=== PATIENT | male | born 1960 | race Caucasian/White ===

== ENCOUNTER 2021-06-06 09:07 | Emergency (ER) | payer BC, SELFPAY ==
--- NOTE | ~2021-06-06 | CT_ITS ---
EXAMINATION: CT abdomen pelvis wo/w con EXAM DATE: 06/06/2021 10:44 INDICATION: hematuria, Hx of prostate CA, r/o stone/CA. TECHNIQUE: Spiral CT of the abdomen and pelvis was performed without contrast. The patient was then injected with small bolus intravenous Omnipaque 350, followed by delay of approximately 10 minutes to allow collecting system to opacify. A post contrast scan abdomen and pelvis was performed during inj ection of remaining contrast. A total of 130 cc intravenous contrast was administered. The dose-vidya th product (DLP) for this examination was 754.98 mGy-cm. The exposure was tailored according to shekhar ent size (auto mA exposure control), and iterative reconstruction (ASIR) was used as additional dose reduction technique. Comparison is made to prior examination from 12/27/2017. FINDINGS: On the precontrast study there is hyperdense material in the dependent aspect of the bladde r which shifts on prone imaging, consistent with blood clot measuring about 2 x 3 cm. Mild diffuse bl adder wall thickening without superimposed focal suspicious region. There is no hydronephrosis or nep hrolithiasis. The kidneys enhance symmetrically. There are no suspicious renal lesions. The calyc es and opacified portions of ureters are unremarkable, without filling defects or focal suspicious st rictures. Surgical changes from prostatectomy. Small right inguinal fat-containing hernia. Small umb ilical fat-containing hernia. The liver, spleen, adrenal glands and pancreas are unremarkable. Gallbladder is unremarkable. No bi liary obstruction. There is no retroperitoneal or pelvic lymphadenopathy. There is mild scattered arteriosclerotic disease. The appendix is normal. The stomach and small bowel are unremarkable. There is expected amount of c olonic stool. No free intraperitoneal gas. The heart is normal in size. There are no pericardial or pleural effusions. Right lower lobe granuloma. There are no osteoblastic or osteolytic lesions identified. Mild lumbar levoscoliosis. IMPRESSION: 1. Bladder mobile intraluminal material, likely blood clot. Mild diffuse bladder wall thickening, ac point lay ira or chronic cystitis. 2. Prostatectomy. 3. Small fat-containing hernias. Reviewed, dictated and finalized at location A. IMPRESSION: 1. Bladder mobile intraluminal material, likely blood clot. Mild diffuse bladd er wall thickening, acute or chronic cystitis. 2. Prostatectomy. 3. Small fat-containing hernias.
[2021-06-06 09:14] VITALS: BP 153/74; PULSE 69; RESP 18; TEMP 36.7; O2SAT 100
--- NOTE | 2021-06-06 09:29 | ED.GENADULT ---
HPI - General Adult General Chief complaint: Urogenital-Male <SAM Thrasher Last Filed: 06/06/21 18:23> Stated complaint: Urinating blood <SAM Thrasher Last Filed: 06/06/21 18:23> Time Seen by Provider: 06/06/21 09:22 <SAM Thrasher Last Filed: 06/06/21 18:23> Source: patient <SAM Thrasher Last Filed: 06/06/21 18:23> Mode of arrival: ambulatory <SAM Thrasher Last Filed: 06/06/21 18:23> Limitations: no limitations <SAM Thrasher Last Filed: 06/06/21 18:23> History of Present Illness HPI narrative: Patient is a 61 y/o male who presents to the ED with c/o painless hematuria. Patient reports he urinated at 2 AM this morning and noticed 1 drop of blood in his urine. No pain with urination at that time. He then urinated around 5 AM at which point it was gross bleeding throughout his whole urination. He went to work and had another episode of gross bleeding around 7:45 AM at which point he also passed several large blood clots in his urine. He then decided to come to the ED. Patient did report slight discomfort with urination with the episode of clots, but has denied any other discomfort otherwise. He does report intermittent lower abdominal and lower back pain recently but denies any pain currently. No fever, chills, nausea, vomiting, urinary retention. No blood thinners/ASA. No recent instrumentation. Patient has history of prostate cancer in 2018. He underwent prostatectomy and radiation treatment at that time. <ASM Thrasher Last Filed: 06/06/21 18:23> Related Data Allergies/adverse reactions: Allergies Allergy/AdvReac Type Severity Reaction Status Date / Time No Known Allergies Allergy Verified 06/06/21 09:24 <SAM Thrasher Last Filed: 06/06/21 18:23> Review of Systems Review of Systems: CONSTITUTIONAL: Denies fever, chills, or sweats. CARDIOVASCULAR: Denies chest pain. RESPIRATORY: Denies dyspnea. GASTROINTESTINAL: Reports intermittent lower abdominal pain. Denies nausea, vomiting, or diarrhea. GENITOURINARY: Reports urinary discomfort, passing clots, hematuria. Denies retention. SKIN: Denies rash or itching. MUSCULOSKELETAL: Reports intermittent lower back pain. Denies joint pain or myalgia. <Eileen Byrd PA-C - Last Filed: 06/06/21 18:23> All systems reviewed & are unremarkable except as noted in HPI and below <Eileen Byrd PA-C - Last Filed: 06/06/21 18:23> PMFSH Past Medical History Medical History: Medical History (Updated 06/06/21 @ 12:29 by Eileen Byrd PA-C) History of prostate cancer <Eileen Byrd PA-C - Last Filed: 06/06/21 18:23> Surgical History Surgical History: Surgical History (Updated 06/06/21 @ 09:49 by Eileen Byrd PA-C) H/O hernia repair H/O prostatectomy <Eileen Byrd PA-C - Last Filed: 06/06/21 18:23> Family History Family History: Family History (Updated 10/15/13 @ 07:13 by DOCTOR UNKNOWN) Father Carcinoma of colon Malignant neoplasm of prostate Other Diabetes mellitus Family history of cardiovascular disease Family history of coronary artery disease Hypertension <Eileen Byrd PA-C - Last Filed: 06/06/21 18:23> Social History Social History: Social History (Updated 06/06/21 @ 09:50 by Eileen Byrd PA-C) Smoking packs per day: 1 Smoking cigarettes per day: 20.0 Smoking status: Current every day smoker Alcohol intake: current <Eileen Byrd PA-C - Last Filed: 06/06/21 18:23> Exam Narrative: GENERAL: Mildly chronically ill appearing, well-nourished, non-toxic, in no acute distress. HEAD: Normocephalic, atraumatic. NECK: Supple. No adenopathy, no masses. RESPIRATORY: Airway patent, respirations nonlabored. Rhonchi in lung bases bilaterally. No wheezing. CARDIOVASCULAR: Regular rate and rhythm without murmurs, rubs, or gallops. Peripheral pulses 2+ and equal bilaterally. ABDOMINAL: S
--- NOTE | 2021-06-06 09:55 | PC.NURSE ---
pt states he is unable to void at this time.
[2021-06-06 09:58] LABS: Basophils Percent Auto 0.8 % (0.2-1.2); Eosinophils Absolute Auto 0.1 K/mm3 (0-0.3); Hematocrit 42.6 % (42.0-52.0); Hemoglobin 14.3 g/dL (14.0-18.0); Immature Granulocyte Absolute 0.03 K/mm3 (0.00-0.031); Immature Granulocyte Percent A 0.6 % (0-0.5); Lymphocytes Absolute Auto 0.89 K/mm3 (0.9-3.2); Lymphocytes Percent Auto 18.4 % (18.3-44.2); Mean Corpuscular HGB Conc 33.6 g/dl (32-36); Mean Corpuscular Hemoglobin 34.1 pg (26-34); Mean Corpuscular Volume 101.7 fl (80-100); Mean Platelet Volume 8.6 fl (7.4-10.4); Monocytes Absolute Auto 0.5 K/mm3 (0.1-0.6); Monocytes Percent Auto 11.1 % (2.6-8.5); Neutrophils Absolute Auto 3.3 K/mm3 (1.3-6.7); Neutrophils Percent Auto 68.1 % (45.5-73.1); Platelet Count Result 258 k/mm3 (150-375); Red Blood Count 4.19 M/mm3 (4.6-6.20); Red Cell Distribution Width 13.6 % (11.5-14.5); White Blood Count 4.9 K/mm3 (4.5-10.0)
[2021-06-06 10:04] LABS: Alanine Aminotransferase 15 U/L (4-50); Albumin Level 4.7 g/dL (3.5-5.1); Alkaline Phosphatase 67 U/L (38-126); Anion Gap 5 mmol/L (8-16); Aspartate Amino Transferase 36 U/L (17-59); Bilirubin,Total 0.8 mg/dL (0.2-1.3); Blood Urea Nitrogen 11 mg/dL (9-20); Calcium 9.1 mg/dL (8.4-10.2); Carbon Dioxide 26 mmol/L (22-30); Chloride 100 mmol/L (98-107); Estimated CRCL calculation 98 ml/min; Estimated Glomerular Filt Rate > 60; Glucose 111 mg/dL (65-110); Sodium 131 mmol/L (137-145)
[2021-06-06 11:12] LABS: RBC Urine >75 /hpf (0-2); WBC Urine 16-20 /hpf
[2021-06-06 11:20] LABS: Add Urine Microscopic? YES; Appearance Urine Cloudy (Clear); Color Urine Red (Yellow)
[2021-06-06 11:21] LABS: Bilirubin Urine Negative (Negative); Blood Urine 3+ (Negative); Glucose Urine UA Negative (Negative); Ketones Urine Negative (Negative); Leukocyte Esterase Ur Trace LEU/UL (Negative); Nitrate Urine Negative (Negative); Protein Urine 1+ mg/dL (Negative); Specific Grav Ur 1.012 (1.001-1.035); Urobilinogen Urine Negative mg/dL (<2.0)
[2021-06-06 12:52] VITALS: BP 137/70
== END 2021-06-06 12:53 | disposition home or self-care (01) ==
PROVIDERS: Physician Assistant; Emergency Provider Emergency Medicine; PCP Internal Medicine
DX: N30.01 Acute cystitis with hematuria (principal); Z85.46 Personal history of malignant neoplasm of prostate; Z90.79 Acquired absence of other genital organ(s); F17.210 Nicotine dependence, cigarettes, uncomplicated; K46.9 Unspecified abdominal hernia without obstruction or gangrene
CPT/HCPCS: 36415; 74178; 80053; 81001; 85025; 87077; 87086; 87088; 87186; 99284; Q9967

== ENCOUNTER → 2022-09-07 14:59 | Outpatient (CLI) | payer BC, SELFPAY ==
--- NOTE | ~2022-09-07 | XR_ITS ---
XR shoulder RT min 2V DATE: 09/07/2022 15:24 INDICATION: Right shoulder pain for months. No recent injury. TECHNIQUE: 4 views COMPARISON: None FINDINGS: There is osteopenia. No fracture or dislocation, periosteal reaction or bone destruction is detected. No abnormal right shoulder soft tissue calcification is noted. Thoracic dextroscoliosis. IMPRESSION: Osteopenia Reviewed, dictated and finalized at location B. IMPRESSION: Osteopenia
--- NOTE | ~2022-09-07 | XR_ITS ---
XR shoulder LT min 2V DATE: 09/07/2022 15:25 INDICATION: Left shoulder pain for months. No recent injury. TECHNIQUE: 4 views COMPARISON: None FINDINGS: There is osteopenia. No fracture or dislocation, periosteal reaction or bone destruction or abnormal left shoulder soft ti ssue calcification is detected. IMPRESSION: Osteopenia Reviewed, dictated and finalized at location B. IMPRESSION: Osteopenia
== END ==
PROVIDERS: PCP Nurse Practitioner Family; Visit Provider Nurse Practitioner Family
DX: M25.512 Pain in left shoulder (principal); M25.511 Pain in right shoulder; M85.811 Other specified disorders of bone density and structure, right shoulder; M85.812 Other specified disorders of bone density and structure, left shoulder
CPT/HCPCS: 73030

== ENCOUNTER 2022-09-14 08:58 | Outpatient (CLI) | payer BC, SELFPAY ==
--- NOTE | ~2022-09-14 | CT_ITS ---
CT Scan of the Chest without Contrast: Clinical Indication: Lung cancer screening, personal history of nicotine dependence Technique: Contiguous sections were acquired throughout the chest without intravenous contrast. Dose reduction technique was used on this scan by utilizing automated exposure control and iterative recon struction technique. The dose-length product (DLP) was 140.95 mGy-cm. COMPARISON: 10/01/2017 Findings: There is no evidence of any significant mediastinal, hilar or axillary lymphadenopathy. Ascending aor ta is dilated to 4.8 cm in diameter. Small calcified mediastinal and right hilar lymph nodes are pres ent. Coronary artery calcification are present. There is no evidence of pleural or pericardial effusion. There is linear right basilar scarring or atelectasis. Calcified right lower lobe granuloma present.. Images through the upper abdomen reveal no abnormalities. There is diffuse osteoblastic metastatic disease, which is new since prior exam. Impression: Lung RADS 1-S: Negative. 12 month follow-up screening CT advised. Diffuse osteoblastic metastatic disease, which is new since prior exam. Metastatic prostate carcinoma is the most likely etiology. Reviewed, dictated and finalized at location . Impression: Lung RADS 1-S: Negative. 12 month follow-up screening CT advised. Diffuse osteoblastic metastatic disease, which is new since prior exam. Metasta tic prostate carcinoma is the most likely etiology.
--- NOTE | ~2022-09-14 | CT_ITS ---
EXAMINATION: CT abdomen pelvis w con DATE: 09/14/2022 09:39 INDICATION: Generalized abdominal pain. Nausea. TECHNIQUE: Computed tomography (CT) of the abdomen and pelvis was performed with 100 CC Omnipaque 350 intravenous contrast. Automated exposure control and iterative reconstruction technique were employe d. Exam dose: 229.15 mGy-cm total exam DLP. COMPARISON: 06/06/2021 CT abdomen pelvis FINDINGS: Mild discoid atelectasis and/or scarring at the base of the middle and right lower lobes. Old pulmonary granulomatous disease of the right lower lobe. Normal heart size. Coronary artery calcification. No pericardial or pleural effusion. Calcified hepatic and splenic granulomas consistent with old granulomatous disease. The gallbladder is present. No bile duct or pancreatic duct dilatation. No hepatic, splenic, pancreatic, and adrenal or renal space-occupying mass lesion. Normal caliber of the abdominal aorta; no abdominal aortic aneurysm or dissection is detected. No int raperitoneal or retroperitoneal or pelvic mass lesion or lymphadenopathy is noted. No urinary tract calculus or hydroureteronephrosis. There is prominent diffuse thickening of the urinary bladder wall. Cystitis is not excluded. The pros thrasher is likely surgically absent. Extensive osteosclerotic lesions of the ribs, sternum, thoracic and lumbar spine and iliac bones are noted most consistent with osteosclerotic metastatic disease of [place] cancer. Prominent bilateral penile corpora calcifications. No CT evidence of appendicitis. No bowel obstruction, bowel wall thickening, pneumatosis or intraperi toneal free air is noted. Small fat-containing umbilical hernia. Small fat-containing right inguinal hernia. IMPRESSION: Extensive new osteosclerotic lesions of the axial skeleton since 06/06/2021, likely due t o metastatic prostate cancer Status post prostatectomy Thickening of the urinary bladder which may be due to cystitis Reviewed, dictated and finalized at Location A. Reviewed, dictated and finalized at location B. IMPRESSION: Extensive new osteosclerotic lesions of the axial skeleton since , likely due to metastatic prostate cancer Status post prostatectomy Thickening of the urinary bladder which may be due to cystitis
[2022-09-14 09:14] LABS: Basophils Absolute Auto 0.1 K/mm3 (0.0-0.1); Basophils Percent Auto 1.3 % (0.2-1.2); Eosinophils Absolute Auto 0.1 K/mm3 (0-0.3); Eosinophils Percent Auto 1.8 % (0-4.4); Hematocrit 41.2 % (42.0-52.0); Hemoglobin 13.7 g/dL (14.0-18.0); Immature Granulocyte Absolute 0.15 K/mm3 (0.00-0.031); Immature Granulocyte Percent A 3.8 % (0-0.5); Lymphocytes Absolute Auto 1.21 K/mm3 (0.9-3.2); Lymphocytes Percent Auto 30.3 % (18.3-44.2); Mean Corpuscular HGB Conc 33.3 g/dl (32-36); Mean Corpuscular Hemoglobin 32.6 pg (26-34); Mean Corpuscular Volume 98.1 fl (80-100); Mean Platelet Volume 7.8 fl (7.4-10.4); Monocytes Absolute Auto 0.3 K/mm3 (0.1-0.6); Monocytes Percent Auto 6.8 % (2.6-8.5); Neutrophils Absolute Auto 2.3 K/mm3 (1.3-6.7); Platelet Count Result 228 k/mm3 (150-375); Red Cell Distribution Width 14.6 % (11.5-14.5)
[2022-09-14 09:24] LABS: Alanine Aminotransferase 15 U/L (6-50); Albumin Level 3.7 g/dL (3.5-5.1); Alkaline Phosphatase 316 U/L (38-126); Anion Gap 4 mmol/L (8-16); Aspartate Amino Transferase 32 U/L (17-59); Bilirubin,Total 0.4 mg/dL (0.2-1.3); Blood Urea Nitrogen 9 mg/dL (9-20); Calcium 8.7 mg/dL (8.4-10.2); Carbon Dioxide 28 mmol/L (22-30); Chloride 103 mmol/L (98-107); Cholesterol 181 mg/dL (0-200); Estimated Glomerular Filt Rate > 60; Glucose 93 mg/dL (65-110); HDL Direct 68 mg/dL; Potassium 4.6 mmol/L (3.4-5.0); Sodium 135 mmol/L (137-145); Triglycerides 62 mg/dL (<150)
[2022-09-14 09:31] LABS: Estimated Glomerular Filt Rate > 60
[2022-09-14 09:34] LABS: LDL Cholesterol Direct 77 mg/dL
[2022-09-14 09:54] LABS: Prostate Specific Antigen > 100.0 ng/mL (< OR = 4.0)
== END 2022-09-14 08:59 | disposition home or self-care (01) ==
PROVIDERS: PCP Nurse Practitioner Family; Referring Provider Nurse Practitioner Family; Visit Provider Family Medicine
DX: Z00.00 Encounter for general adult medical examination without abnormal findings (principal); Z87.891 Personal history of nicotine dependence; Z13.29 Encounter for screening for other suspected endocrine disorder; Z13.6 Encounter for screening for cardiovascular disorders; Z85.46 Personal history of malignant neoplasm of prostate; Z13.0 Encounter for screening for diseases of the blood and blood-forming organs and certain disorders involving the immune mechanism; R10.30 Lower abdominal pain, unspecified; C79.51 Secondary malignant neoplasm of bone; Z90.79 Acquired absence of other genital organ(s); R93.41 Abnormal radiologic findings on diagnostic imaging of renal pelvis, ureter, or bladder
CPT/HCPCS: 36415; 71271; 74177; 80053; 80061; 84153; 84443; 85025; Q9967

== ENCOUNTER 2022-10-05 00:34 | Day surgery (SDC) | payer BC, SELFPAY ==
--- NOTE | 2022-10-04 13:44 | PC.NURSE ---
Report to the Outpatient Waiting Room, entrance under the green pavilion located off [facility], at time _1015 on date __10/05/22 . Planned Procedure Time: __1215 . Time changes happen often and if your time is changed the preop area will call you the afternoon before. - You and your visitor will be asked to self-screen and do not enter if you have any COVID symptoms. - A mask is optional within the hospital at this time. Patients may have clear liquids (water, carbonated beverages, clear teas, apple juice) until 3 hours prior to surgery with a maximum of 20 ounces. - No food from midnight until time of surgery - Infants may have breast milk until 4 hours before surgery, infant formula 6 hours prior to surgery. - Children will be allowed to drink immediately following surgery. If applicable, please bring a bottle or sippy cup to assist with drinking. Juice, water, soda, and popsicles are readily available. For infants on formula, please bring formula the day of surgery. Pacifiers are allowed. Take the following medications with a SIP of water the morning of surgery: NONE DO NOT STOP ANY OF YOUR OTHER PRESCRIPTION MEDICATIONS PRIOR TO SURGERY ?EXCEPT THE FOLLOWING Medications to discontinue per physician NONE Please no make-up, nail citizen of [place], hairspray, perfume, deodorant, or body powder the day of surgery. No jewelry (including any body piercings) or valuables the day of surgery, leave them at home. Please take a shower or bath the night before, or the morning of, surgery with an antibacterial soap. Wear comfortable, loose fitting clothing. Children are encouraged to wear pajamas. - Jewelry must be removed prior to entering the operating room. Rings and piercings that are not removed may be cut off. - The hospital will not accept responsibility for valuables. - Please leave all valuables, including medications, at home the day of surgery. If you are going home after surgery, a licensed seasonal driver must drive you home. - NO public transportation without another adult if you receive anesthesia. - We recommend that an adult stay with you for 24 hours following discharge. - We also recommend that you do not drive, make important decision, drink alcoholic beverages, or take any drugs that were not prescribed by your health care provider for at least 24 hours after your discharge time. For Pediatric surgeries, we recommend two adults accompany the child home. Follow any additional instructions given to you from your surgeon. If you or anyone in your household have experienced Covid symptoms in the past week, please notify your surgeon or the nurse liaison at the phone number below for possible testing. Telephone instructions given to __PATIENT'S DEBBIE and asked if any additional questions and then verbalized understanding. Patient advised to call surgeon office or pre surgery nurse liaison [phone] if any additional questions.
[2022-10-04 13:48] VITALS: BMI 19.8
--- NOTE | ~2022-10-05 | XR_ITS ---
EXAMINATION: XR chest port-a-cath/central INDICATION: Port-A-Cath insertion TECHNIQUE: Portable AP chest at 1418 hours COMPARISON: 09/14/2022 FINDINGS: A right internal jugular Port-A-Cath ends with its tip in the proximal superior vena cava. The lungs are free of acute opacities. No pleural effusion or pneumothorax. Sclerotic osseous metasta ses are noted as seen on the comparison CT. IMPRESSION: 1. Right internal jugular Port-A-Cath insertion without pneumothorax. 2. Sclerotic osseous metastases. Reviewed, dictated and finalized at location B.
--- NOTE | ~2022-10-05 | XR_ITS ---
EXAMINATION: XR fl guide central line place DATE: 10/05/2022 13:15 CDT INDICATION: INSERT LA CATH . TECHNIQUE: 2 fluoroscopic images of the chest were obtained during implanted port insertion performed by the surgeon. I was not present in the operating room. Fluoroscopy exposure time was 25.7 seconds. Air Kerma 3.2913 mGy. DAP 0.0652 mGym2. COMPARISON: None FINDINGS: Implanted right IJ central line terminating in the distal SVC. IMPRESSION: Fluoroscopic documentation of implanted port insertion. Please refer to the operative note for comple te procedural details . Reviewed, dictated and finalized at location K. IMPRESSION: Fluoroscopic documentation of implanted port insertion. Please refer to the ope rative note for complete procedural details .
[2022-10-05] MEDS: LACTATED RINGERS 1,000 ML 30 ML IV CONT (10:45)
[2022-10-05] MEDS: KETOROLAC 15 MG/ML VIAL (*BKC) IV PUSH (11:07)
[2022-10-05 11:08] VITALS: BP 136/60; PULSE 57; RESP 16; TEMP 36.9; O2SAT 100
[2022-10-05 11:15] LABS: Partial Thromboplastin Time 23.4 SECONDS (22.3-36.8); Prothrombin Time 13.3 Seconds (11.1-14.7)
--- NOTE | 2022-10-05 11:50 | WPDANESEPPF ---
Anes - Initial Pre Proc Eval Procedure: Operation Date: 10/05/22 12:15 Proposed Procedures p Insertion Chantelle Cath - Gualberto Baca MD Date/Time: 10/05/22 11:50 Surgeon: Gualberto Baca MD Pre Op Diagnosis: Prostate Ca Metastatic to Bone Patient Data Age: 62 Gender: M Height: 1.73 m Weight: 61.3 kg Last Vital Signs Temp 36.9 C 10/05/22 11:08 Pulse 57 L 10/05/22 11:08 Resp 16 10/05/22 11:08 BP 136/60 10/05/22 11:08 Pulse Ox 100 10/05/22 11:08 O2 Del Method Room Air 10/05/22 11:08 Allergies Allergy/AdvReac Type Severity Reaction Status Date / Time No Known Allergies Allergy Verified 10/05/22 11:08 Home Medications Medication Instructions Recorded Confirmed Type ibuprofen 800 mg tablet 800 mg PO TID PRN pain #90 tabs 09/07/22 10/04/22 Rx varenicline 0.5 mg (11)-1 mg (42) See Rx Instructions PO PER PKG DIR 09/07/22 10/04/22 Rx tablets in a dose pack ([employer] #53 ea Starting Month Box) tramadol 50 mg tablet 50 mg PO DAILY 10/04/22 10/04/22 History Laboratory Tests 10/05/22 10:52 PT 13.3 Seconds (11.1-14.7) INR 1.0 APTT 23.4 SECONDS (22.3-36.8) Patient hx anesthesia problems: none Family hx anesthesia problems: none Results Review: All pre-operative results and documents have been reviewed as part of the pre-operative evaluation. [facility] Past Medical History Medical History Abnormal CT scan 09/14/22 - osteosclerotic lesions to ribs, sternum, thoracic and lumbar spine, and iliac bones consistent with metastatic disease of prostate cancer. Anxiety Arthritis Ascending aorta dilatation Cancer Chest pain Encounter to establish care History of prostate cancer HTN (hypertension) Hypersomnia Insomnia Left shoulder pain Low back pain Lower abdominal pain Murmur Right shoulder pain Screening for colon cancer Screening for lung cancer Snoring Testicular pain Thoracic back pain Tobacco abuse Surgical History Surgical History H/O hernia repair H/O prostatectomy Family History Family History Father Carcinoma of colon Malignant neoplasm of prostate Grandparent Heart disease Other Diabetes mellitus Family history of cardiovascular disease Family history of coronary artery disease Hypertension Social History Social History Smoking packs per day: 1 Smoking cigarettes per day: 20.0 Years smoked: 20 Smoking pack-years: 20.00 Smoking status: Former smoker Tobacco type: cigarettes Smoking end date: 10/01/22 Alcohol intake: current Drinks per week: 21 Alcohol use details: Occasionally Substance use: never Substance use type: does not use Living arrangements: with family Spiritual care concerns: No Anes - Eval Final PreProcedure Day of Procedure 10/05/22 11:50 Patient weight: normal Heart: regular rate and rhythm Lungs: decreased breath sounds Airway: Mallampati scale class II Neurological: alert and oriented Last oral intake: >/= 8 hours ASA classification: IV Emergent: no Anesthetic plan: proceed Anesthesia type and monitoring: general GIVS and standard monitoring Results Review: All pre-operative results and documents have been reviewed as part of the pre-operative evaluation. Informed Consent: The patient's anesthetic plan and its attendant risks and benefits were discussed with the patient/family/POA. Questions were solicited and answers provided to the satisfaction of the patient/family/POA.
--- NOTE | 2022-10-05 12:55 | PM.IMHP ---
H&P: HPI History of Present Illness Date/Time: 10/05/22 12:55 Chief Complaint: Metastatic prostate CA to bone Narrative: Pt presents for placement of portacatheter to start chemo tx for metastatic prostate CA to bone. No prior port or central line placements. No bleeding issues. Review of Systems Review of Systems: The remainder of the review of systems to include constitutional, HEENT, cardiovascular, respiratory, GI, , integumentary, musculoskeletal, endocrine, immunologic, hematologic, psychiatric, and neurologic are all negative except for which is mentioned above in the HPI. [facility] Past Medical History Medical History Abnormal CT scan 09/14/22 - osteosclerotic lesions to ribs, sternum, thoracic and lumbar spine, and iliac bones consistent with metastatic disease of prostate cancer. Anxiety Arthritis Ascending aorta dilatation Cancer Chest pain Encounter to establish care History of prostate cancer HTN (hypertension) Hypersomnia Insomnia Left shoulder pain Low back pain Lower abdominal pain Murmur Right shoulder pain Screening for colon cancer Screening for lung cancer Snoring Testicular pain Thoracic back pain Tobacco abuse Surgical History Surgical History H/O hernia repair H/O prostatectomy Family History Family History Father Carcinoma of colon Malignant neoplasm of prostate Grandparent Heart disease Other Diabetes mellitus Family history of cardiovascular disease Family history of coronary artery disease Hypertension Social History Social History Smoking packs per day: 1 Smoking cigarettes per day: 20.0 Years smoked: 20 Smoking pack-years: 20.00 Smoking status: Former smoker Tobacco type: cigarettes Smoking end date: 10/01/22 Alcohol intake: current Drinks per week: 21 Alcohol use details: Occasionally Substance use: never Substance use type: does not use Living arrangements: with family Spiritual care concerns: No Meds Home Medications and Allergies Home Medications Medication Instructions Recorded Confirmed Type ibuprofen 800 mg tablet 800 mg PO TID PRN pain #90 tabs 09/07/22 10/04/22 Rx varenicline 0.5 mg (11)-1 mg (42) See Rx Instructions PO PER PKG DIR 07/21/23 08/17/23 Rx tablets in a dose pack ([employer] #53 ea Starting Month Box) tramadol 50 mg tablet 50 mg PO DAILY 10/04/22 10/04/22 History Allergies Allergy/AdvReac Type Severity Reaction Status Date / Time No Known Allergies Allergy Verified 10/05/22 11:08 Vital Signs Vital Signs - 24 hr 10/05/22 11:08 Temperature 36.9 C Pulse Rate 57 L Respiratory Rate 16 Blood Pressure 136/60 Pulse Oximetry 100 Oxygen Delivery Room Air Exam Const: General: comfortable and no acute distress HENMT: Ears: TM's normal bilaterally Face/Nose/Sinus: Normal nares present Eyes: General: appearance normal, both eyes and all related structures Sclera: sclerae normal Pupils: Equal, round and reactive pupils present Neck: Neck: supple and no JVD Resp: Effort & Inspection: normal respiratory effort Auscultation: clear to auscultation bilaterally Cardio: Rate: regular rate Rhythm: regular rhythm GI: GI Palp: Yes Soft to palpation, No Firmness to palpation present (GI), No Tenderness to palpation present (GI), No Guarding due to palpation present (GI) and No Hernia present Skin: General skin exam: normal color and no rashes or lesions noted Neuro: General: gait normal Speech: normal speech Motor exam (neuro): 5/5 motor strength present throughout Extrem: General: normal to inspection Psych: Mental Status: mental status grossly normal Affect: normal affect Assessment and Plan Assessment and plan (1) Prostate CA: Code(s): C61 - Malignant
--- NOTE | 2022-10-05 13:00 | WPDHPUPDATE1 ---
History and Physical Update Update Date/Time: 10/05/22 13:00 History and Physical has been reviewed, including an updated exam of the patient. There are NO changes in the patient's condition. Risks, benefits, and alternatives have been discussed and questions answered. Patient agrees to proceed with procedure.
[2022-10-05] MEDS: ceFAZolin 2 GM/D5W 50 ML 2 GM/50 ML BAG IVPB (13:18)
[2022-10-05] MEDS: LIDO 1%/EPINEPHRINE 1:100,000 20 ML VIAL 22 ML INFILTRATE (14:02)
[2022-10-05 14:11] VITALS: BP 133/72; PULSE 64; RESP 16; O2SAT 100
--- NOTE | 2022-10-05 14:14 | W.PM.PROC2 ---
Procedure Note - Detailed Date of Procedure 10/05/22 Pre-op Diagnosis Prostate Ca Metastatic to Bone Post-op Diagnosis Same Procedure Performed Placement of right internal jugular vein single-lumen port a catheter with intraoperative fluoroscopy Surgeon Gualberto Baca MD Gate Agent [place] VICE PRESIDENT FINANCIAL Anesthesia MAC Indications Patient is a 62-year-old gentleman who unfortunately has metastatic prostate cancer to his bones. He is to undergo chemotherapy treatments and presents now for placement of everett catheter to start chemotherapy treatments. Findings None significant Description of Procedure After informed consent was obtained patient brought to the operating room was placed supine position then IV sedation was administered per Anesthesia. The bilateral upper anterior neck and chest was then prepped and draped in usual sterile fashion. A time-out was then performed correctly identifying the patient as well as procedure to be performed. He was given Ancef for perioperative IV antibiotics. Then the patient was placed in the head-down Trendelenburg position. A long 18gauge spinal needle was then used to cannulate the right internal jugular vein on the 1st pass and it without any difficulty between the 2 heads of the right sternocleidomastoid muscle. There was prompt return of dark venous appearing blood. A guidewire was then advanced through the needle and into the right internal jugular vein a subsequent down into the superior vena cava. Intraoperative fluoroscopy was then used to confirm visualize the tip of the guidewire which was in the proper position. I then proceeded to anesthetize the area the right upper anterior chest wall with 1% lidocaine mixed with 0.5% Marcaine. A transverse incision was then made this a with a scalpel dissection was carried down through the subcutaneous tissues with electrocautery. The subcutaneous port pocket was then developed electrocautery blunt finger dissection distal level above the pectoralis major fascia. I then enlarged the insertion site of the guidewire the scalpel and then tunneled the 9.6 [place] single-lumen catheter between the chest incision and the neck incision. I then advanced a dilator and breakaway sheath over the guidewire and then removed the guidewire and dilator leaving the sheath in place. The catheter was then advanced through the sheath into the right internal jugular vein and subsequently down into the right atrium of the heart without difficulty via the superior vena cava. The sheath was then torn away leaving the catheter in place. Intraoperative fluoroscopy was then used to visualize the tip of the catheter and I pulled back on the catheter external to the chest wall until the tip of the catheter was at the atriocaval junction. The catheter was then cut to the appropriate length at the skin level and attached to the Smart Port. The port was then secured in the subcutaneous port pocket utilizing 3-0 Prolene sutures and 3 areas. I then accessed the port and it clary back blood easily and was flushed with heparinized saline solution. The incision was irrigated sterile saline solution hemostasis was good. I then closed the incision in the upper right chest wall utilizing interrupted 3-0 Vicryl sutures the subcutaneous tissues. The skin edges were then approximated utilizing a running subcuticular 5 0 Monocryl suture. The small neck incision was also closed with a 5 0 Monocryl suture. Both incisions were then cleaned the skin glue was applied. I then accessed the port percutaneously 1 last time and again clary back blood easily and was flushed with 5000units of heparin. The patient tolerated the procedure well no complications. All sponges, needles, and instrument counts were correct at the end procedure. EBL was __ 10 _cc. The patient was awakened and taken to recovery in stable and satisfactory condition. Postprocedure chest x-ray has been performed but reading is pending at the time the s
[2022-10-05 14:30] VITALS: BP 123/72; PULSE 64; RESP 16; O2SAT 99
[2022-10-05 15:00] VITALS: BP 137/70; PULSE 62; RESP 16
== END 2022-10-05 15:09 | disposition home or self-care (01) ==
PROVIDERS: PCP Nurse Practitioner Family; Visit Provider Surgery
PROC: (CPT 36561; principal; 2022-10-05 12:15)
DX: C61 Malignant neoplasm of prostate (principal); C79.51 Secondary malignant neoplasm of bone; I10 Essential (primary) hypertension; I77.810 Thoracic aortic ectasia; F41.9 Anxiety disorder, unspecified; Z87.891 Personal history of nicotine dependence
CPT/HCPCS: 36561; 36415; 77001; 85610; 85730; C1788; J0690; J1644; J1885; J2250; J2704; J3010; J7030; J7120

== ENCOUNTER 2022-10-10 13:45 | Outpatient (CLI) | payer BC, SELFPAY ==
--- NOTE | ~2022-10-10 | PE_ITS ---
EXAMINATION: PET_PETPSMAST_PT DATE: 10/10/2022 15:47 INDICATION: Prostate cancer metastatic to bone. TECHNIQUE: 9.131 mCi of piflufolastat F-18 was administered intravenously. Low dose computed tomograp hy (CT) images were acquired from the base of the brain to the proximal thighs for attenuation correc tion and anatomic localization. Automated exposure control was employed. Dose-length product (DLP) wa s 481 mGy-cm. Positron emission tomography (PET) images were acquired in the same distribution. COMPARISON: CT chest, abdomen, and pelvis 09/14/2022 FINDINGS: Head/neck: There are no pathologically enlarged lymph nodes. There is extensive mucosal thickening in the left frontal, left ethmoid, and left maxillary sinuses with thickening and sclerosis of the wall s of left maxillary sinus, consistent with chronic sinusitis. There are widespread sclerotic lesions of bone with increased activity. Chest: There is mild atelectasis bilaterally. A calcified right lung nodule and calcified right hilar lymph nodes are consistent with old granulomatous disease. No pleural effusion. There is a right int ernal jugular port with tip in superior vena cava. The heart size is normal. No pericardial effusion. There are coronary artery calcifications. There is ectasia of ascending aorta measuring 4.5 cm . The re are widespread sclerotic lesions of bone with increased activity. Abdomen/pelvis/proximal thighs: Calcifications in the liver and spleen are consistent with old granul omatous disease. The gallbladder, pancreas, adrenal glands, and kidneys are normal. There is an umbil ical hernia containing fat. There are no dilated loops of bowel. The appendix is normal. There is dif fuse wall thickening of the bladder, which may be secondary to chronic outlet obstruction. There is a right inguinal hernia containing fat. The prostate is absent. Aortic atherosclerosis is noted. There are no pathologically enlarged lymph nodes. There is no free intraperitoneal fluid. There are widesp read sclerotic lesions of bone without increased activity. IMPRESSION: 1. Widespread osseous metastatic disease. Reviewed, dictated and finalized at location A.
== END 2022-10-10 13:46 | disposition home or self-care (01) ==
PROVIDERS: PCP Nurse Practitioner Family; Visit Provider Internal Medicine Hematology & Oncology
DX: C61 Malignant neoplasm of prostate (principal); C79.51 Secondary malignant neoplasm of bone
CPT/HCPCS: 78815; A9595

== ENCOUNTER 2022-10-15 12:35 | Outpatient (CLI) | payer BC, SELFPAY ==
--- NOTE | 2022-10-15 12:38 | ECHO_ITS ---
Patient Info Name: Matthew Byers Age: 62 years : 1960 Gender: Male Ht: 68 in Wt: 138 lbs BSA: 1.73 m2 HR: 66 bpm BP: 145 / 71 mmHg Heart Rhythm: Sinus Rhythm Technical Quality: Fair Exam Date: 10/15/2022 12:47 PM Exam Location: [facility] Patient Status: Outpatient Admit Date: 10/15/2022 Staff Ordering Physician: Ivana Lopez NP Precast Molder: Angela Meyer RDCS Attending Provider: Ivana Lopez NP Exam Type: CA echo doppler color flow Study Info Indications R01.1 - Cardiac murmur, unspecified R07.89 - Other chest pain Complete two-dimensional, color flow and Doppler transthoracic echocardiogram is performed. Summary 1. Complete two-dimensional, color flow and Doppler transthoracic echocardiogram is performed. 2. Left ventricular chamber dimension is mildly enlarged. 3. Left ventricular systolic function is hyperdynamic, estimated at >70%. 4. The left ventricular diastolic function is grade III diastolic dysfunction. 5. E/e' 8 is minimally elevated. 6. Left atrial chamber dimension is mildly enlarged. 7. The aortic valve is not well visualized. Cannot determine number of aortic valve leaflets. 8. There is moderate aortic valve sclerosis. 9. There is moderate aortic valve stenosis with a peak velocity of 309 cm/s, mean gradient of 18 mmHg, and aortic valve area of 1.1 cm2. 10. There is mild mitral valve regurgitation. 11. There is mild tricuspid valve regurgitation. 12. No pulmonary hypertension, estimated pulmonary arterial systolic pressure is 33 mmHg. Left Ventricle E/e' 8 is minimally elevated. Left ventricular chamber dimension is mildly enlarged. Left ventricular systolic function is hyperdynamic, estimated at >70%. The left ventricular diastolic function is grade III diastolic dysfunction. Right Ventricle Right ventricular chamber dimension is normal. Right ventricular systolic function is normal. Left Atria Left atrial chamber dimension is mildly enlarged. Right Atria Right atrial chamber dimension is normal. Aortic Valve The aortic valve is not well visualized. Cannot determine number of aortic valve leaflets. There is moderate aortic valve sclerosis. There is moderate aortic valve stenosis with a peak velocity of 309 cm/s, mean gradient of 18 mmHg, and aortic valve area of 1.1 cm2. There is no aortic valve regurgitation. Pulmonic Valve There is no pulmonic regurgitation. Mitral Valve There is no mitral valve stenosis. There is mild mitral valve regurgitation. Tricuspid Valve There is mild tricuspid valve regurgitation. No pulmonary hypertension, estimated pulmonary arterial systolic pressure is 33 mmHg. Pericardium/Pleural There is no pericardial effusion. Inferior Vena Cava Normal inferior vena cava with >50% collapse upon inspiration consistent with normal right atrial pressure, 5 mmHg. Aorta The aortic root size at the sinus of Valsalva is normal. Left Ventricular Outflow Tract Name Value Normal LVOT 2D LVOT Diameter 2.0 cm LVOT Doppler LVOT Peak Gradient 4 mmHg LVOT Mean Gradient 2 mmHg LVOT VTI 23 cm LVOT VTI/AV VTI Ratio
--- NOTE | 2022-10-15 13:44 | ECG_ITS ---
Measurements Intervals [place] Rate: 60 P: 66 WV: 180 QRS: 62 QRSD: 110 T: 57 QT: 416 QTc: 418 Interpretive Statements SINUS RHYTHM NORMAL ELECTROCARDIOGRAM NO PREVIOUS ECG AVAILABLE FOR COMPARISON Electronically Signed On 10-16-2022 11:51:20 CDT by Johan Welch M.D.
== END 2022-10-15 12:36 | disposition home or self-care (01) ==
LOC: ANHCARD 12:36
PROVIDERS: PCP Nurse Practitioner Family; Visit Provider Nurse Practitioner Family
DX: R07.9 Chest pain, unspecified (principal); R01.1 Cardiac murmur, unspecified; I36.1 Nonrheumatic tricuspid (valve) insufficiency
CPT/HCPCS: 93005; 93306

== ENCOUNTER 2022-10-16 08:24 | Outpatient (CLI) | payer BC, SELFPAY ==
--- NOTE | 2022-10-18 12:11 | WPDHOMESLEEP ---
Sleep Study - Home Unattended Date of Study: 10/16/22 Ordering Provider: Ivana Lopez NP Interpreting Provider: Thalia Hutchins MD Home Sleep Study Type: Watch PAT Height: 1.73 m Weight: 62.596 kg Body Mass Index: 20.9 Neck Circumference (inches): 14.5 [place]: 3 Reason for Sleep Study Difficulty falling asleep and staying asleep Sleep History Matthew Byers is a 62-year-old male who has difficulty getting to sleep and staying asleep. He wakes during the night. This is been going on for several years. He does not awaken from sleep feeling short of breath or awaken at night with heartburn, belching or coughing. He rarely snores. On occasion others complain that his snoring is loud. He occasionally has difficulty sleeping with a cold. He does not wake up gasping for breath at night. He rarely has breathing problems at night reported to him by others. He occasionally sweats excessively at night, occasionally notices his heart pounding or beating irregularly at night. He rarely falls asleep during the day. He does not fall asleep involuntarily or while driving. He does not have loss of muscle tone with strong emotion. He rarely has daytime difficulties due to excessive sleepiness. 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 He does not feel paralyzed on waking or falling asleep. He rarely has vivid dreamlike scenes upon awakening or falling asleep. He does not feel afraid to go to sleep. He rarely has nightmares. He occasionally remembers his dreams. He frequently has racing thoughts. He rarely feels sad or depressed. He occasionally has anxiety. He rarely has muscular tension. He occasionally notices parts of his body jerking. He rarely kicks at night. He frequently has crawling and aching feelings in his legs and leg pain during the night. He does not have morning jaw pain. Does not grind his teeth during sleep. He is not bothered by pain during the day. He occasionally is awakened by pain at night. He frequently wakes up feeling stiff in the morning. He rarely wakes up with sore achy muscles. He frequently has neck and spine pain on waking. He takes sedatives. He does use excessive alcohol per his own report. Normal bedtime is 9:00 p.m., taking a variable amount of time to fall asleep. He may wake up 4 to 5 times during the night for unclear reasons. These awakenings occur soon after falling asleep, during the middle of the night and in the certified rehabilitation counselor hours. When awake he rolls over and tries to become more comfortable. His normal wake time is between 4:30 and 5:00 a.m.. On the weekends, his bedtime varies and is wake time also varies. He takes naps in the afternoon or evening. Short naps are not refreshing. He feels better in the afternoon compared to other times of day. Habits: Prior history of tobacco. No caffeine. He drinks alcohol. No recreational substances. [facility] Past Medical History Medical History Abnormal CT scan 09/14/22 - osteosclerotic lesions to ribs, sternum, thoracic and lumbar spine, and iliac bones consistent with metastatic disease of prostate cancer. Anxiety Arthritis Ascending aorta dilatation Cancer Chest pain Encounter to establish care History of prostate cancer HTN (hypertension) Hypersomnia Insomnia Left shoulder pain Low back pain Lower abdominal pain Murmur Right shoulder pain Screening for colon cancer Screening for lung cancer Snoring Testicular pain Thoracic back pain Tobacco abuse Surgical History Surgical History H/O hernia repair H/O prostatectomy Family History Family History Father Carcinoma of colon Malignant neoplasm of prostate Grandparent Heart disease Other Diabetes mellitus Family history of cardiovascular disease Family history of coronary artery disease Hypertension Social History Socia
[2022-10-18 14:58] VITALS: BMI 20.9
== END 2022-10-17 10:18 | disposition home or self-care (01) ==
LOC: ANHCSM 08:26
PROVIDERS: PCP Nurse Practitioner Family; Visit Provider Nurse Practitioner Family
DX: G47.00 Insomnia, unspecified (principal); G25.81 Restless legs syndrome
CPT/HCPCS: 95800

== ENCOUNTER 2022-11-07 16:34 | Emergency (ER) | payer BC, SELFPAY ==
[2022-11-07 17:02] VITALS: BP 116/60; PULSE 68; RESP 16; TEMP 36.9; O2SAT 100
--- NOTE | 2022-11-07 20:25 | PC.NURSE ---
Patient called for a room twice with no answer
== END 2022-11-07 20:25 | disposition left against medical advice (07) ==
PROVIDERS: PCP Internal Medicine Hematology & Oncology
DX: R11.10 Vomiting, unspecified (principal)
CPT/HCPCS: 99199

== ENCOUNTER 2022-11-13 12:16 | Inpatient (IN) | payer BC, SELFPAY ==
[2022-11-13] VITALS (33 sets, daily range): BP systolic 83–148; BP diastolic 54–79; PULSE 63–88; RESP 13–21; TEMP 36.2–36.3; O2SAT 97–100; BMI 22.4
--- NOTE | ~2022-11-13 | XR_ITS ---
EXAMINATION: XR chest 1V portable DATE: 11/13/2022 14:09 INDICATION: Shortness of breath. TECHNIQUE: A single frontal view of the chest was obtained. COMPARISON: Chest single view 10/05/2022, PET/CT 10/10/2022 FINDINGS: There is mild elevation of right hemidiaphragm. A calcified right lung nodule and calcified right hilar lymph nodes are consistent with old granulomatous disease. No pleural effusion or pneumo thorax. The heart size is normal. There is a right internal jugular port with tip in superior vena ca va. There are widespread sclerotic lesions of bone, consistent with metastatic disease. There are old healed left rib fractures. IMPRESSION: 1. Widespread sclerotic lesions of bone, consistent with metastatic disease. Reviewed, dictated and finalized at location A.
[2022-11-13] MEDS: SODIUM CHLORIDE 0.9% IV 1,000 ML 999 ML IV CONT ×3 (13:08→14:52)
[2022-11-13 13:18] LABS: Fractional Inspired Oxygen 21 %; HCO3 VBG 15.3 mEq/l (24.0-30.0); PO2 VBG 33.6 mmHg (35.0-45.0); pH VBG 7.376 (7.300-7.400)
[2022-11-13 13:20] LABS: PCO2 VBG 26.7 mmHg (42.0-48.0)
--- NOTE | 2022-11-13 13:52 | ECG_ITS ---
Measurements Intervals [place] Rate: 66 P: 60 MI: 151 QRS: 58 QRSD: 113 T: 66 QT: 436 QTc: 459 Interpretive Statements SINUS RHYTHM INTRAVENTRICULAR CONDUCTION DELAY BASELINE WANDER- I, II, III BORDERLINE ECG COMPARED TO ECG 10/15/2022 13:49:04 NO SIGNIFICANT CHANGES Electronically Signed On 11-13-2022 14:27:35 CDT by Conner Flynn D.O.
--- NOTE | 2022-11-13 13:54 | ED.RECABL ---
HPI - Recheck/Abnormal Lab/Rx General Chief Complaint: Recheck/Abnormal Lab/Rx Stated Complaint: hypotension-sent [facility] Time Seen by Provider: 11/13/22 12:42 Source: patient, RN notes reviewed and old records reviewed Mode of arrival: ambulatory Limitations: no limitations History of Present Illness HPI narrative: This is a 62 year old male who presents for evaluation of abnormal labs. PAtient was diagnosed prostate CA with mets to bones who presents for evaluation of anemia and low sodium. Patient states that he has decreased appetite. He had episode of nausea and vomiting yesterday but he denies vomiting today. He denies chest pain, abdominal pain. HE reports long standing dyspnea. He reports over the weekend he was dry heaving and he saw red streak in his phlegm. He reports normal bowel movements. He denies fever or chills. He drinks lots of soda and beer daily. He also reports having stress test yesterday that he failed. Related Data Home Medications Medication Instructions Recorded Confirmed tramadol 50 mg tablet 50 mg PO DAILY PRN Moderate Pain 10/04/22 11/13/22 (Scale Score 5-6) abiraterone 250 mg tablet 250 mg PO QID 11/13/22 11/13/22 bicalutamide 50 mg tablet 50 mg PO DAILY 11/13/22 11/13/22 famotidine 20 mg tablet 20 mg PO DAILY 11/13/22 11/13/22 lidocaine-prilocaine 2.5 %-2.5 % 1 applic transdermal BID 11/13/22 11/13/22 topical cream prednisone 5 mg tablet 5 mg PO BIDWM 11/13/22 11/13/22 quetiapine 25 mg tablet 25 mg PO HS 11/13/22 11/13/22 sulfamethoxazole 800 1 tablet PO BID 11/13/22 11/13/22 mg-trimethoprim 160 mg tablet Allergies Allergy/AdvReac Type Severity Reaction Status Date / Time No Known Allergies Allergy Verified 11/13/22 12:17 Review of Systems Constitutional: Constitutional: Reports weakness Cardiovascular: Cardiovascular: Denies syncope, Denies rapid heart rate, Denies irregular heart rhythm, Denies leg edema and Reports dyspnea Respiratory: Respiratory: Denies chest congestion, Reports cough, Denies hemoptysis, Denies excessive phlegm production and Reports dyspnea Gastrointestinal: Gastrointestinal: Denies abdominal pain, Denies hematochezia, Denies diarrhea and Denies vomiting Genitourinary: Genitourinary: Denies hematuria, Denies dysuria, Denies penile discharge and Denies testicular pain Musculoskeletal: Musculoskeletal: Denies joint swelling, Denies loss of height and Denies muscle weakness Neurologic: Denies syncope, Denies focal weakness and Denies weakness PMFSH Past Medical History Medical History (Updated 11/13/22 @ 22:51 by Angie Mccollum MD) Anxiety Arthritis Ascending aorta dilatation Daily consumption of alcohol Hypersomnia Hypertension Insomnia Prostate cancer metastatic to bone Tobacco abuse Surgical History Surgical History (Updated 11/13/22 @ 15:53 by Liberty Cordero PAMatC) History of left inguinal hernia repair (07/2011) History of robot-assisted laparoscopic radical prostatectomy (02/2018) Family History Family History (Updated 11/13/22 @ 22:34 by Thomas Zaragoza RN) Father Malignant neoplasm of prostate Grandparent Heart disease Other Diabetes mellitus Family history of cardiovascular disease Family history of coronary artery disease Hypertension Social History Social History (Updated 11/13/22 @ 15:54 by Liberty Cordero PA-C) Social History: Surrogate medical decision maker: Code status: Full code. Smoking packs per day: 1 Smoking cigarettes per day: 20.0 Years smoked: 35 Smoking pack-years: 35.00 Smoking status: Former smoker Tobacco type: cigarettes Smoking end date: 10/01/22 Alcohol intake: current Drinks per week: 21 Substance use: never Substance use type: does not use Living arrangements: with family Spiritual care concerns: No Exam Const: General: no acute distress and alert Nutritional Appearance: well nourished Orientation/consciousness: p
--- NOTE | 2022-11-13 14:01 | PC.NURSE ---
pt blood pressure is low. iv fluids are running and was notified.
[2022-11-13 14:33] LABS: Thyroid Stimulating Hormone Reflex 0.206 uIU/mL (0.465-4.68)
[2022-11-13] MEDS: PANTOPRAZOLE SODIUM IV 40 MG VIAL IV PUSH (14:37)
[2022-11-13 14:44] LABS: Appearance Urine Clear (Clear); Bilirubin Urine Negative (Negative); Blood Urine Negative (Negative); Color Urine Yellow (Yellow); Glucose Urine UA Negative (Negative); Ketones Urine Negative (Negative); Leukocyte Esterase Ur Negative LEU/UL (Negative); Nitrate Urine Negative (Negative); Protein Urine Negative (Negative); Specific Grav Ur 1.006 (1.001-1.035); Urobilinogen Urine 0.2 mg/dL (<2.0); pH Urine 6.5 (5.0-9.0)
[2022-11-13 14:45] LABS: Sodium Urine Random 12 meq/L
[2022-11-13 14:51] LABS: Add Urine Microscopic? NO
--- NOTE | 2022-11-13 15:48 | PM.IMHP ---
H&P: HPI History of Present Illness Date/Time: 11/13/22 16:30 Chief Complaint: Low blood pressure, low sodium level, abnormal stress test. Narrative: This is a 62-year-old male smoker currently receiving chemotherapy for metastatic prostate cancer who presented to the emergency department from the [facility] for evaluation of low blood pressure, low sodium levels, and an abnormal stress test. The patient provides the following history. He was due to have a chemotherapy today but was unable to do so due to anemia (hemoglobin 8.3) and hyponatremia (115). His appetite has not been great since his last chemotherapy treatment 3 weeks ago and his oral intake has not been great. He does drink quite a bit of water every day at baseline and he also drinks soda and beer. He will typically have 1 to 2 beers most days however has up to 7 to 10 beers on days he is not working. Looking back through his records it looks like his sodium is always a bit low. His anemia is likely due to chemotherapy. He has not noticed any blood loss. Also of note, the patient received a call today from his primary care provider that a stress test that he did yesterday came back abnormal. The test was ordered because he mention that he was having chest discomfort however he attributed that to his bony metastatic. It does not sound as though he has had exertional chest pain. In the ED he was given 2 L normal saline and he is being admitted in this setting for further treatment and evaluation. Review of Systems Review of Systems: Twelve systems were reviewed. No fever or chills. He endorses intermittent sweats at night, and they are not drenching sweats. No cold or flu symptoms. He has occasional anterior chest discomfort as detailed in HPI. No exertional chest pain or pleuritic pain. His energy has been low though he attributes that chemotherapy. He does get short of breath with exertion, having bus stop to rest when walking up a flight of steps. He has had some nausea and dry heaves but no vomiting. No diarrhea. No dysuria. He has not noticed a change in urine output. Except as documented, all other systems were reviewed and are negative. [facility] Past Medical History Medical History Anxiety Arthritis Ascending aorta dilatation Daily consumption of alcohol Hypersomnia Hypertension Insomnia Prostate cancer metastatic to bone Tobacco abuse Surgical History Surgical History History of left inguinal hernia repair (07/2011) History of robot-assisted laparoscopic radical prostatectomy (02/2018) Family History Family History Father Malignant neoplasm of prostate Grandparent Heart disease Other Diabetes mellitus Family history of cardiovascular disease Family history of coronary artery disease Hypertension Social History Social History (Updated 11/14/22 @ 15:01 by Liberty Cordero PA-C) Social History: Surrogate medical decision maker: Emyelijah Mckeon, spouse. Code status: Full code. Smoking packs per day: 1 Smoking cigarettes per day: 20.0 Years smoked: 30 Smoking pack-years: 30.00 Smoking status: Former smoker Tobacco type: cigarettes Smoking end date: 10/01/22 Alcohol intake: current Drinks per week: 18 Substance use: never Substance use type: does not use Lack of Transportation: No Lack of Food: Never True Current Housing: I Have Housing Concerned About Future Housing: No Difficulty Paying Gas/Electric Bills: No Difficulty Paying for Meds: No Currently Unemployed: No Education: High School Diploma/GED Difficulty w/ Childcare or Family Care: No Living arrangements: with family Spiritual care concerns: No Meds Home Medications and Allergies Home Medications Medication Instructions Recorded Confirmed Type tramadol 50
[2022-11-13 16:16] LABS: Free T4 Free Thyroxine Reflex 1.69 ng/dL (0.78-2.19)
[2022-11-13 16:50] LABS: Anion Gap 12 mmol/L (8-16); Blood Urea Nitrogen 11 mg/dL (9-20); Calcium 6.1 mg/dL (8.4-10.2); Carbon Dioxide 11 mmol/L (22-30); Chloride 98 mmol/L (98-107); Estimated CRCL calculation 113 ml/min; Estimated Glomerular Filt Rate > 60; Glucose 125 mg/dL (65-110); Sodium 121 mmol/L (137-145)
[2022-11-13 16:53] LABS: Glucose Point of Care 120 mg/dl (65-105)
[2022-11-13 17:03] LABS: Creatinine Urine 12.5 mg/dL
[2022-11-13 17:07] LABS: Total Triiodothyronine (T3) 0.53 NG/ML (0.97-1.69)
[2022-11-13] MEDS: CALCIUM GLUCONATE 1,000 MG/10 ML VIAL 1000 MG IV PUSH (20:00)
[2022-11-13 21:08] LABS: Creatinine Urine 11.9 mg/dL; Urea Random Urine 167 MG/DL
[2022-11-13 21:11] LABS: Sodium Urine Random 12 meq/L
[2022-11-13 22:13] LABS: Anion Gap 5 mmol/L (8-16); Blood Urea Nitrogen 8 mg/dL (9-20); Calcium 6.1 mg/dL (8.4-10.2); Carbon Dioxide 15 mmol/L (22-30); Chloride 106 mmol/L (98-107); Estimated CRCL calculation 113 ml/min; Estimated Glomerular Filt Rate > 60; Glucose 149 mg/dL (65-110); Magnesium 2.7 mg/dL (1.6-2.3); Phosphorus 2.3 mg/dL (2.5-4.5); Potassium 4.6 mmol/L (3.4-5.0); Sodium 126 mmol/L (137-145)
--- NOTE | 2022-11-13 22:43 | ADMGEN ---
This patient, Matthew Byers, was admitted to IMU Room 210-01. Patient/family oriented to hospital policies and general routines including ID bracelet, bed and alarms, visiting hours, pain management, procedures, bathroom and other care routines, personal items, smoking policy, room service/diet, and visiting hours. Information on how to activate the Rapid Response Team has been discussed. Patient/Family are encouraged to report perceived risks to care and to ask questions if they do not understand what they are told or what they should do.
[2022-11-13 23:00] LABS: Thyroid Stimulating Hormone Reflex 0.454 uIU/mL (0.465-4.68)
[2022-11-14] VITALS (15 sets, daily range): BP systolic 99–148; BP diastolic 55–75; PULSE 65–75; RESP 16–18; TEMP 35.8–36.8; O2SAT 99–100; BMI 22.4
[2022-11-14 05:32] LABS: Hematocrit 22.9 % (42.0-52.0); Hemoglobin 7.7 g/dL (14.0-18.0); Mean Corpuscular HGB Conc 33.6 g/dl (32-36); Mean Corpuscular Hemoglobin 32.5 pg (26-34); Mean Corpuscular Volume 96.6 fl (80-100); Mean Platelet Volume 9.1 fl (7.4-10.4); Platelet Count Result 244 k/mm3 (150-375); Red Blood Count 2.37 M/mm3 (4.6-6.20); Red Cell Distribution Width 14.6 % (11.5-14.5); White Blood Count 7.2 K/mm3 (4.5-10.0)
[2022-11-14 05:48] LABS: Alanine Aminotransferase 14 U/L (6-50); Albumin Level 2.8 g/dL (3.5-5.1); Alkaline Phosphatase 170 U/L (38-126); Anion Gap 6 mmol/L (8-16); Aspartate Amino Transferase 17 U/L (17-59); Bilirubin,Total 0.4 mg/dL (0.2-1.3); Blood Urea Nitrogen 7 mg/dL (9-20); Calcium 5.9 mg/dL (8.4-10.2); Carbon Dioxide 16 mmol/L (22-30); Chloride 107 mmol/L (98-107); Estimated CRCL calculation 119 ml/min; Estimated Glomerular Filt Rate > 60; Glucose 142 mg/dL (65-110); Potassium 4.3 mmol/L (3.4-5.0); Sodium 129 mmol/L (137-145)
[2022-11-14 06:06] LABS: Lymphocytes Absolute Manual 0.14 K/mm3 (1.1-4.5); Lymphocytes Percent Manual 2 % (18-44); Metamyelocytes Percent 1 %; Monocytes Absolute Manual 0.14 K/mm3 (0.1-0.90); Monocytes Percent Manual 2 % (3-9); Neutrophils Percent Manual 94 % (46-73); Total Cells Counted 100
[2022-11-14 06:07] LABS: Myelocytes Percent 1 %; Platelet Estimate Adequate (Adequate); Schistocytes None Seen (NORMAL)
[2022-11-14] MEDS: DESMOPRESSIN ACETATE 4 MCG/ML AMP 2 MCG SUB-Q (06:30)
[2022-11-14] MEDS: DEXTROSE 5% IN WATER 500 ML 250 ML IV CONT ×2 (06:39→10:22)
[2022-11-14 09:21] LABS: Free T4 Free Thyroxine Reflex 1.27 ng/dL (0.78-2.19)
[2022-11-14 09:53] LABS: Sodium 127 mmol/L (137-145)
--- NOTE | 2022-11-14 10:10 | PC.NURSE ---
Notified Dr. Dorsey of patient's sodium level of 127. New order to give Dextrose 5% in Water IVPB at 250ml/hr for 2 hours. Repeat sodium level one hour after infusion is complete, and call with results.
--- NOTE | 2022-11-14 10:20 | PM.IMPN ---
Progress Note: A&P Assessment and Plan (1) Hyponatremia: Code(s): E87.1 - Hypo-osmolality and hyponatremia Status: Acute (2) Anemia: Code(s): D64.9 - Anemia, unspecified Status: Acute (3) Abnormal stress test: Code(s): R94.39 - Abnormal result of other cardiovascular function study Status: Acute (4) Prostate cancer metastatic to bone: Code(s): C61 - Malignant neoplasm of prostate; C79.51 - Secondary malignant neoplasm of bone Status: Acute (5) Daily consumption of alcohol: Code(s): Z78.9 - Other specified health status Status: Acute (6) Tobacco abuse: Code(s): Z72.0 - Tobacco use Status: Acute Plan The patient presented to the emergency department from the [facility] for evaluation after he was found to have anemia and hyponatremia as detailed in HPI. Additionally he had a stress test done yesterday which was reportedly abnormal. Cardiology consulted given reports of abnormal stress test. Smoking cessation is encouraged Anemia Patient received chemotherapy treatments about 3 weeks ago Acute be 11.2 on October 23 Today 7.7 Need to rule out gI bleeding. Follow stool guaiac, ferritin, iron panel Start Protonix 40 mg IV daily Consult GI Acute on chronic hyponatremia It looks like his sodium always runs a bit low however it was 115 POA Etiology is not entirely clear. Possible due to alcohol abuse he does not look volume depleted or volume overloaded on exam. It sounds like he consumes quite a bit of fluid which may be the cause. He received 2 L of normal saline in the emergency department we will hold on further fluids pending further workup. Urine sodium, TSH, and urine serum osmolalities are pending. Sodium 127 today, start D5 in water to 50 mL/hours per crushing foreman, discontinue normal saline IV Follow-up BMP History of alcohol abuse . He denies ever having signs or symptoms of alcohol withdrawal. His home medications will be reviewed and resumed as appropriate. Subjective Date/time seen: 11/14/22 10:20 Interval history: I saw and examined patient today. Patient still has general weakness. Some short of breath with exertion. Patient denies nausea vomiting, black stools Exam Narrative: General: A chronically ill-appearing male sitting up in bed in no acute distress. Weight: 63.5 kg. BMI: 21.3. HEENT: PERRL, EOMI. Sclera anicteric. Moist mucous membranes. Neck: Supple. Respiratory: Lungs are clear to auscultation bilaterally. Chest: No tenderness to palpation over the chest wall. Cardiovascular: Regular rate and rhythm with S1-S2. Gastrointestinal: Abdomen is soft, nontender, and nondistended with positive bowel sounds. Skin: Warm and dry. Generalized pallor. Extremities: No cyanosis, clubbing, or edema. Radial and pedal pulses intact. Neurological: Alert. Cranial nerves 2-12 are grossly intact. No gross focal deficits to casual conversation. Psychiatric: Pleasant and cooperative with normal mood and affect. Judgment and insight intact. Objective Data Vital Signs Vital Signs: Vital Signs - 24 hr 11/13/22 12:37 11/13/22 12:36 11/13/22 12:56 Temperature 97.2 F L Pulse Rate 65 65 63 Respiratory Rate 16 18 14 Blood Pressure 103/65 Pulse Oximetry 100 99 100 Oxygen Delivery Room Air 11/13/22 13:03 11/13/22 13:19 11/13/22 13:31 Temperature Pulse Rate 67 66 68 Respiratory Rate 18 16 19 Blood Pressure 92/79 L Pulse Oximetry 100 99 100 Oxygen Delivery 11/13/22 13:32 11/13/22 13:49 11/13/22 14:05 Temperature Pulse Rate 67 68 69 Respiratory Rate 20 18 15 Blood Pressure Pulse Oximetry 99 100 100 Oxygen Delivery 11/13/22 14:28 11/13/22 14:30 11/13/22 14:31 Temperature Pulse Rate 70 70 72 Respiratory Rate 17 17 15 Blood Pressure 91/59 L Pulse Oximetry 100 100 Oxygen Delivery 11/13/22 14:53 11/13/22 15:06 11/13/22 15:15 Temperature Pulse Rate 69
[2022-11-14 10:51] LABS: Iron 95 ug/dL (49-181)
[2022-11-14 11:00] LABS: Percent Iron Saturation 39 % (20-50)
[2022-11-14 12:24] LABS: Glucose Point of Care 182 mg/dl (65-105)
--- NOTE | 2022-11-14 13:00 | PM.CNNEP ---
Assessment and Plan Assessment and plan (1) Hyponatremia: Code(s): E87.1 - Hypo-osmolality and hyponatremia Status: Acute Assessment and Plan: acute on chronic baseline sodium runs around 129 - 132mmol/L since early 2018 chronic sodium due to: underlying malignancy smoking chronic pain etiology of acute drop not clear: side effect of chemotherapy? prerenal factors? excessive fluid intake? evaluation to date: TSH okay urine electrolytes prerenal check cortisol serum/urine osmo pending increase in sodiunm with normal saline IVFs argues in favor of volume depletion given evidence of overcorrection -- given DDAVP and D5W fluids follow trend of repeat sodium levels (2) Anemia: Code(s): D64.9 - Anemia, unspecified Status: Acute Assessment and Plan: presumably related to chemotherapy Gastroenterology recommendations follow H/H (3) Prostate cancer metastatic to bone: Code(s): C61 - Malignant neoplasm of prostate; C79.51 - Secondary malignant neoplasm of bone Status: Chronic Assessment and Plan: Hem/Onc follow-up on chemotherapy I will continue to follow the patient with you while she remains hospitalized and make further recommendations as needed. Thank you for allowing me to participate in care this patient. History of Present Illness Reason for Consult Consult date: 11/14/22 Reason for consult: hyponatremia Chief Complaint Chief complaint: hyponatremia,anemia,metastatic prostate cancer History of Present Illness Narrative: The patient is a 62-year-old male with a past medical history as outlined below who presented to [facility] Emergency room from the [facility] yesterday for further evaluation of hypotension and hyponatremia. The patient is sleep presented to the cancer center for his scheduled chemotherapy but this was unable be done as preprocedure labs demonstrated significant anemia with a hemoglobin of 8.3 and significant hyponatremia with a sodium of 115. Given these abnormal readings, he was directed to the emergency room for further assessment. Workup and evaluation emergency room confirmed his hypotension with readings in the 80 systolic range. He received aggressive IV fluid resuscitation which did improve his systolic BP. As far as I am aware, in spite of his significant hyponatremia and anemia, he was otherwise asymptomatic and had no specific complaints related to these issues. Repeat labs confirmed the presence of these to abnormalities. It should also be noted that he apparently had a recent stress test done that was also abnormal although I am unclear if this relates to any of the issues and problems that led to his subsequent admission to the hospital. Since his admission, his sodium level has been slowly improving but unfortunately over corrected by labs done this morning with a increase in 14 millimoles per L in less than 24 hours. He was subsequently given D5W IV fluids along with DDAVP an effort to slow down this correction process and try to get his sodium level closer to 123-124 millimoles per L. once again, as already mentioned, despite these fluctuations in his sodium level, he has had no issues or problems with neurological sequelae as far as I am aware. Renal consultation was requested due to his acute on chronic hyponatremia. From review his records, his baseline sodium level seems run around 129-132 millimoles per L as far back as early 2018. Upon further questioning, the patient reports that his appetite has not been very good since he started chemotherapy about 3 weeks ago. He does attempt to drink quite a bit of water in an effort to maintain his hydration status and along with. he reports on and off soda and beer intake. He reports about 1-2 beers most days however he has been known to drink up to 7-10 beers in a day at times. he does not appear to be on any culprit medications that wou
--- NOTE | 2022-11-14 13:04 | WPDGICN ---
Assessment and Plan Assessment and plan (1) Anemia: Code(s): D64.9 - Anemia, unspecified Status: Acute Assessment and Plan: Patient with anemia which appears to be related to chemotherapy. Anemia is normochromic and normocytic. There is no obvious blood loss evident at this time. Iron studies obtained initially show a normal iron level as well as a normal ferritin, suggesting this is not from chronic blood loss. Stool Hemoccult will be obtained is not available. At present would recommend monitoring hemoglobin. Would consider Hematology/ Oncology follow-up for this. If bleeding identified will proceed with GI endoscopy, but at present correction of his very low sodium, electrolytes and hemoglobin should take priority. (2) Acute hyponatremia: Code(s): E87.1 - Hypo-osmolality and hyponatremia Status: Acute Assessment and Plan: Significant electrolyte imbalance with hyponatremia noted at time presentation likely contributes to his severe nausea vomiting and may be a result of it as well. (3) Prostate cancer metastatic to bone: Code(s): C61 - Malignant neoplasm of prostate; C79.51 - Secondary malignant neoplasm of bone Status: Acute Assessment and Plan: Oncology follow-up for prostate metastases encourage. (4) Alcohol abuse: Code(s): F10.10 - Alcohol abuse, uncomplicated Status: Acute Assessment and Plan: Patient has a history of heavy alcohol intake in the past. Limiting this would be to his benefit [facility] ward. GI Consult Note Consult date/time: 11/14/22 13:04 Reason for consult: anemia HPI: Matthew Byers is a 62 year old male I am asked to see because of anemia at the request of the hospitalist service. Patient is known to have metastatic prostate cancer. Patient recently identified as having relatively diffuse bony metastases from prostate cancer. Patient has started chemotherapy initial therapy Three weeks ago. Patient began to have nausea shortly after this along with dry heaves. It became more intense this last week. Recent follow-up blood count under the direction of the automation clerk revealed the patient had rather profound normochromic, normocytic anemia. Patient also had dramatic hyponatremia. Additional cardiac stress testing was performed and found to be abnormal within the last 1-2 days. For this reason patient admitted to the hospital for further evaluation. Patient denies any obvious blood in his stools. His bowel habits remain normal. He has no bruising or bleeding elsewhere. Family history noncontributory. Review of Systems Review of Systems: Review of systems noncontributory. [facility] Past Medical History Medical History (Updated 11/13/22 @ 22:51 by Angie Mccollum MD) Anxiety Arthritis Ascending aorta dilatation Daily consumption of alcohol Hypersomnia Hypertension Insomnia Prostate cancer metastatic to bone Tobacco abuse Surgical History Surgical History (Updated 11/13/22 @ 15:53 by Liberty Cordero PA-C) History of left inguinal hernia repair (07/2011) History of robot-assisted laparoscopic radical prostatectomy (02/2018) Family History Family History (Updated 11/13/22 @ 22:34 by Thomas Zaragoza RN) Father Malignant neoplasm of prostate Grandparent Heart disease Other Diabetes mellitus Family history of cardiovascular disease Family history of coronary artery disease Hypertension Social History Social History (Updated 11/13/22 @ 15:54 by Liberty Cordero PA-C) Social History: Surrogate medical decision maker: Code status: Full code. Smoking packs per day: 1 Smoking cigarettes per day: 20.0 Years smoked: 30 Smoking pack-years: 30.00 Smoking status: Former smoker Tobacco type: cigarettes Smoking end date: 10/01/22 Alcohol intake: current Drinks per week: 18 Substance use: never Substance use type: does not use Lack of Transportatio
[2022-11-14 13:38] LABS: Hemoglobin 7.6 g/dL (14.0-18.0); Mean Corpuscular Hemoglobin 32.5 pg (26-34); Mean Corpuscular Volume 98.3 fl (80-100); Mean Platelet Volume 8.6 fl (7.4-10.4); Platelet Count Result 224 k/mm3 (150-375); Red Blood Count 2.34 M/mm3 (4.6-6.20); Red Cell Distribution Width 15.3 % (11.5-14.5); White Blood Count 7.1 K/mm3 (4.5-10.0)
[2022-11-14 13:51] LABS: Sodium 124 mmol/L (137-145)
--- NOTE | 2022-11-14 14:30 | PC.NURSE ---
Spoke with Dr. Dorsey regarding pt's sodium level of 124. New order to repeat sodium level at 1930 and call with results.
--- NOTE | 2022-11-14 14:35 | PM.CNCAR ---
Assessment and Plan Assessment and plan (1) Abnormal stress test: Code(s): R94.39 - Abnormal result of other cardiovascular function study Status: Acute Assessment and Plan: Lexiscan was done on 11/12 which showed LVEF 54%, negative EKG portion, abnormal MPI for a small area of mild apical lateral ischemia. Inferior defect is also seen and appears predominantly fixed and likely related to diaphragmatic/gut attenuation artifact although infarct is not excluded. Patient is without active chest pain. EKG is without ischemic changes. I discussed the results of the stress test with the patient. I also discussed with the patient regarding the management of an abnormal stress test, which would include medical management only vs cardiac catheterization + medical management for delineation of his coronary anatomy. Since patient is without progressive or unstable angina, and his stress test does not show any high risk abnormal features, there is no urgency for cardiac catheterization. I also discussed with the patient that he is not a candidate for cardiac catheterization at this time given his severe hyponatremia and significant anemia (Hgb was 13.7 in August and is now down to 7.6). Patient would need to demonstrate tolerance of antiplatelet agents before we would even consider cardiac catheterization. At this time, patient does not need further inpatient cardiac evaluation or workup. Will have patient follow up with Dr. Hart in the office. Recommend ASA 81mg once daily when his Hgb levels stabilize and if no concern for any bleeding. Recommend high-intensity statin if no contraindications. Cardiology will sign off at this time. (2) Acute hyponatremia: Code(s): E87.1 - Hypo-osmolality and hyponatremia Status: Acute Assessment and Plan: Management as per primary team and Nephrology. (3) Anemia: Code(s): D64.9 - Anemia, unspecified Status: Acute Assessment and Plan: Likely related to cancer/chemotherapy. GI consulted - no plans for endoscopy at this time. Workup/management as per primary team. (4) Prostate cancer metastatic to bone: Code(s): C61 - Malignant neoplasm of prostate; C79.51 - Secondary malignant neoplasm of bone Status: Acute Assessment and Plan: Follows with Oncology. Plan Cardiology will sign off at this time. History of Present Illness History of Present Illness Consult date/time: 11/14/22 14:35 Consult reason: Other (Abnormal stress test) Reason For Visit: hyponatremia,anemia,metastatic prostate cancer Narrative: We are consulted for abnormal stress test. This is a 62 year old male with metastatic prostate cancer undergoing chemotherapy who was seen in clinic by Dr. Hart on 10/23/2022 for heart murmur, abnormal echo, and chest pain. Patient has had 4/10 chest pain intermittently for about 6 months. Occurs randomly, not associated with exertion. Echocardiogram showed moderate aortic stenosis. Dr. Hart ordered Lexiscan given chest pain. Lexiscan was done on 11/12 which showed LVEF 54%, negative EKG portion, abnormal MPI for a small area of mild apical lateral ischemia. Inferior defect is also seen and appears predominantly fixed and likely related to diaphragmatic/gut attenuation artifact although infarct is not excluded. Patient presented to [facility] on 11[facility] for evaluation of low blood pressure, hyponatremia and the abnormal stress test. His Na was 115 on presentation. Hgb at 8.3. We are consulted given the abnormal stress test. Patient denies any chest pain. EKG without ischemic changes. Review of Systems Review of Systems: All systems reviewed & are unremarkable except as noted in HPI and below (HPI) [facility] Past Medical History Medical History Anxiety Arthritis Ascending aorta dilatation Daily consumption of alcohol Hypersomnia Hypertension Insomnia Prostate cancer meta
[2022-11-14 20:08] LABS: Hematocrit 23.4 % (42.0-52.0); Hemoglobin 7.8 g/dL (14.0-18.0)
[2022-11-14 20:16] LABS: Sodium 122 mmol/L (137-145)
[2022-11-14] MEDS: QUEtiapine FUMARATE 25 MG TABLET PO (21:47)
[2022-11-15] VITALS (12 sets, daily range): BP systolic 90–106; BP diastolic 51–62; PULSE 64–87; RESP 16–66; TEMP 36.2–37.1; O2SAT 95–99
[2022-11-15 00:16] LABS: Sodium 120 mmol/L (137-145)
[2022-11-15] MEDS: SODIUM CHLORIDE 0.9% IV 1,000 ML 70 ML IV CONT (00:43)
[2022-11-15] MEDS: ACETAMINOPHEN 325 MG TABLET 650 MG PO (05:08)
[2022-11-15 05:12] LABS: Basophils Percent Auto 0.2 % (0.2-1.2); Hemoglobin 8.4 g/dL (14.0-18.0); Immature Granulocyte Absolute 0.19 K/mm3 (0.00-0.031); Immature Granulocyte Percent A 3.3 % (0-0.5); Lymphocytes Absolute Auto 0.92 K/mm3 (0.9-3.2); Lymphocytes Percent Auto 15.8 % (18.3-44.2); Mean Corpuscular HGB Conc 33.6 g/dl (32-36); Mean Corpuscular Hemoglobin 32.8 pg (26-34); Mean Corpuscular Volume 97.7 fl (80-100); Mean Platelet Volume 8.5 fl (7.4-10.4); Monocytes Absolute Auto 0.2 K/mm3 (0.1-0.6); Monocytes Percent Auto 4.1 % (2.6-8.5); Neutrophils Absolute Auto 4.5 K/mm3 (1.3-6.7); Neutrophils Percent Auto 76.6 % (45.5-73.1); Nucleated Red Blood Cells Perc 0.3 % (0.0-0.2); Platelet Count Result 246 k/mm3 (150-375); Red Blood Count 2.56 M/mm3 (4.6-6.20); Red Cell Distribution Width 15.1 % (11.5-14.5); White Blood Count 5.8 K/mm3 (4.5-10.0)
[2022-11-15 05:25] LABS: Alanine Aminotransferase 13 U/L (6-50); Albumin Level 2.9 g/dL (3.5-5.1); Alkaline Phosphatase 150 U/L (38-126); Anion Gap 3 mmol/L (8-16); Aspartate Amino Transferase 16 U/L (17-59); Bilirubin,Total 0.3 mg/dL (0.2-1.3); Blood Urea Nitrogen 6 mg/dL (9-20); Calcium 6.2 mg/dL (8.4-10.2); Carbon Dioxide 19 mmol/L (22-30); Chloride 98 mmol/L (98-107); Estimated CRCL calculation 145 ml/min; Estimated Glomerular Filt Rate > 60; Glucose 75 mg/dL (65-110); Potassium 4.3 mmol/L (3.4-5.0); Sodium 120 mmol/L (137-145)
[2022-11-15] MEDS: DEXAMETHASONE 4 MG TABLET PO ×2 (08:47→16:53)
[2022-11-15] MEDS: PANTOPRAZOLE SODIUM IV 40 MG VIAL IV PUSH (08:47)
[2022-11-15] MEDS: BICALUTAMIDE (*CHEMO) 50 MG TABLET PO (08:47)
[2022-11-15 09:07] LABS: Sodium 121 mmol/L (137-145)
--- NOTE | 2022-11-15 09:25 | PC.NURSE ---
Informed Dr. Dorsey of sodium results of 121. New order to start sodium tablet 1G PO BID, first dose now. Repeat sodium labs at 1300 and call with results.
--- NOTE | 2022-11-15 09:54 | PM.IMPN ---
Progress Note: A&P Assessment and Plan (1) Hyponatremia: Code(s): E87.1 - Hypo-osmolality and hyponatremia Status: Acute (2) Anemia: Code(s): D64.9 - Anemia, unspecified Status: Acute (3) Abnormal stress test: Code(s): R94.39 - Abnormal result of other cardiovascular function study Status: Acute (4) Prostate cancer metastatic to bone: Code(s): C61 - Malignant neoplasm of prostate; C79.51 - Secondary malignant neoplasm of bone Status: Chronic (5) Daily consumption of alcohol: Code(s): Z78.9 - Other specified health status Status: Acute (6) Tobacco abuse: Code(s): Z72.0 - Tobacco use Status: Acute Plan The patient presented to the emergency department from the [facility] for evaluation after he was found to have anemia and hyponatremia as detailed in HPI. Additionally he had a stress test done yesterday which was reportedly abnormal. Cardiology consulted given reports of abnormal stress test. Smoking cessation is encouraged Cardiology considers he is not a candidate for cardiac catheterization at this time given his severe hyponatremia and significant anemia (Hgb was 13.7 in August and is now down to 7.6). Patient would need to demonstrate tolerance of antiplatelet agents before we would even consider cardiac catheterization. ?Anemia Patient received chemotherapy treatments about 3 weeks ago Acute be 11.2 on October 23 Today 7.7 Follow stool guaiac, ferritin, iron panel Start Protonix 40 mg IV daily Consult GI. appreciate GI consult, considering due to chemotherapy Acute on chronic hyponatremia ?It looks like his sodium always runs a bit low however it was 115 POA ?Etiology is not entirely clear.? Possible due to alcohol abuse he does not look volume depleted or volume overloaded on exam. It sounds like he consumes quite a bit of fluid which may be the cause. He received 2 L of normal saline in the emergency department . Urine sodium, TSH, and urine serum osmolalities are pending. Sodium 127 today, start D5 in water to 50 mL/hours per budget and policy analyst, discontinue normal saline IV Follow-up BMP History of alcohol abuse Currently no signs or symptoms of alcohol withdrawal. His home medications will be reviewed and resumed as appropriate. Subjective Date/time seen: 11/15/22 09:54 Interval history: Patient still has general weakness, denies nausea vomiting diarrhea, denies chest pain but has exertional shortness of breath Exam Narrative: General: A chronically ill-appearing male sitting up in bed in no acute distress. Weight: 63.5 kg. BMI: 21.3. HEENT: PERRL, EOMI. Sclera anicteric. Moist mucous membranes. Neck: Supple. Respiratory: Lungs are clear to auscultation bilaterally. Chest: No tenderness to palpation over the chest wall. Cardiovascular: Regular rate and rhythm with S1-S2. Gastrointestinal: Abdomen is soft, nontender, and nondistended with positive bowel sounds. Skin: Warm and dry. Generalized pallor. Extremities: No cyanosis, clubbing, or edema. Radial and pedal pulses intact. Neurological: Alert. Cranial nerves 2-12 are grossly intact. No gross focal deficits to casual conversation. Psychiatric: Pleasant and cooperative with normal mood and affect. Judgment and insight intact. Objective Data Vital Signs Vital Signs: Vital Signs - 24 hr 11/14/22 10:00 11/14/22 12:00 11/14/22 12:00 Temperature Pulse Rate 69 71 Respiratory Rate Blood Pressure Pulse Oximetry 100 Oxygen Delivery Room Air 11/14/22 14:00 11/14/22 15:51 11/14/22 16:00 Temperature 96.5 F L Pulse Rate 67 65 Respiratory Rate 18 Blood Pressure 105/62 Pulse Oximetry 100 100 Oxygen Delivery Room Air 11/14/22 16:00 11/14/22 18:00 11/14/22 20:00 Temperature 97.6 F Pulse Rate 66 68 66 Respiratory Rate 16 Blood Pressure 100/57 L Pulse Oximetry 99 Oxygen Delivery 11/14/22 20:00 11/14/22 22:00
[2022-11-15] MEDS: SODIUM CHLORIDE 1 GM TABLET PO (10:04)
--- NOTE | 2022-11-15 12:41 | PM.PNNEP ---
Progress Note: A&P Assessment and Plan (1) Hyponatremia: Code(s): E87.1 - Hypo-osmolality and hyponatremia Status: Acute Assessment and Plan: acute on chronic baseline sodium runs around 129 - 132mmol/L since early 2018 chronic sodium due to: underlying malignancy smoking chronic pain etiology of acute drop not clear: side effect of chemotherapy? prerenal factors? excessive fluid intake? evaluation to date: TSH okay urine electrolytes prerenal not checking cortisol since already on steroids serum/urine osmo pending increase in sodium with normal saline IVFs argues in favor of volume depletion s/p DDAVP and D5W IVFs (on 11/14/22) due to overcorrection back on normal saline IVFs follow trend of repeat sodium levels (2) Anemia: Code(s): D64.9 - Anemia, unspecified Status: Acute Assessment and Plan: presumably related to chemotherapy Gastroenterology recommendations follow H/H (3) Prostate cancer metastatic to bone: Code(s): C61 - Malignant neoplasm of prostate; C79.51 - Secondary malignant neoplasm of bone Status: Chronic Assessment and Plan: Hem/Onc follow-up on chemotherapy Will continue to follow. Subjective Date/time seen: 11/15/22 12:41 Interval history: Follow-up for acute on chronic hyponatremia Sodium down trended to 120 and hence normal saline IVFs restarted overnight; inspite of fluctuating sodium levels, mentation remains quite stable; no other acute issues or problems overnight or earler this morning; no apparent distress. Exam Narrative: General: male in NAD Heart: normal S1 and S2; no rub Lungs: clear to auscultation Abdomen: soft, nontender, nondistended, positive bowel sounds Extremities: no cyanosis or clubbing; no edema Skin: warm and dry Objective Data Vital Signs Vital Signs: Vital Signs Temp Pulse Resp BP Pulse Ox O2 Del Method 11/15/22 12:00 66 11/15/22 12:00 98 Room Air 11/15/22 12:00 97.2 F L 66 66 H 99/54 L 98 11/15/22 08:00 95 Room Air 11/15/22 10:00 70 11/15/22 08:00 73 11/15/22 07:46 97.3 F L 87 18 90/51 L 95 11/15/22 06:00 67 11/15/22 04:00 71 11/15/22 02:00 72 11/15/22 03:47 98.7 F 79 16 106/62 96 11/15/22 00:00 72 11/14/22 23:14 97.8 F 75 16 99/55 L 100 11/14/22 22:00 68 11/14/22 20:00 74 11/14/22 20:00 97.6 F 66 16 100/57 L 99 11/14/22 18:00 68 11/14/22 16:00 66 11/14/22 16:00 100 Room Air 11/14/22 15:51 96.5 F L 65 18 105/62 100 Intake/Output Intake/Output: Intake & Output 11/12/22 11/13/22 11/14/22 11/15/22 23:59 23:59 23:59 23:59 Intake Total 3000 2280 820 Balance 3000 2280 820 Meds/Results Medications: Active Medications Generic Name Dose Route Start Last Admin Trade Name Freq PRN Reason Stop Dose Admin Acetaminophen 650 mg 11/15/22 04:53 11/15/22 05:08 Acetaminophen 325 Mg Tablet PO 650 mg Q4H PRN Administration Headache or Mild Pain 1-3 Bicalutamide 50 mg 11/15/22 09:00 11/15/22 08:47 Bicalutamide (*Chemo) 50 Mg Tablet PO 50 mg DAILY GABRIELA Administration Dexamethasone 4 mg 11/15/22 09:00 11/15/22 08:47 Dexamethasone 4 Mg Tablet PO 4 mg BID GABRIELA Administration Heparin Sodium (Beef Lung) 50 units 11/15/22 11:46 Heparin Flush 50 Units/5 Ml Syringe IV PUSH PRN PRN after blood draws Heparin Sodium (Beef Lung) 50 units 11/15/22 11:46 Heparin Flush 50 Units/5 Ml Syringe IV PUSH PRN PRN after intermittent infusion Heparin Sodium (Beef Lung) 50 units 11/16/22 09:00 Heparin Flush 50 Units/5 Ml Syringe IV PUSH QAM GABRIELA Heparin Sodium (Porcine) 500 units 11/15/22 11:46 Heparin Sodium Lock Flush 500 Units/5 Ml Syringe IV PUSH PRN PRN see comments below Sodium Chloride 1,000 mls @ 50 mls/hr 11/15
--- NOTE | 2022-11-15 12:41 | P.PNNP_ITS ---
Progress Note: A&P Assessment and Plan (1) Hyponatremia: Code(s): E87.1 - Hypo-osmolality and hyponatremia Status: Acute Assessment and Plan: * acute on chronic * baseline sodium runs around 129 - 132mmol/L since early 2018 * chronic sodium due to: * underlying malignancy * smoking * chronic pain * etiology of acute drop not clear: * side effect of chemotherapy? * prerenal factors? * excessive fluid intake? * evaluation to date: * TSH okay * urine electrolytes prerenal * not checking cortisol since already on steroids * serum/urine osmo pending * increase in sodium with normal saline IVFs argues in favor of volume depletion * s/p DDAVP and D5W IVFs (on 11/14/22) due to overcorrection * back on normal saline IVFs * follow trend of repeat sodium levels (2) Anemia: Code(s): D64.9 - Anemia, unspecified Status: Acute Assessment and Plan: * presumably related to chemotherapy * Gastroenterology recommendations * follow H/H (3) Prostate cancer metastatic to bone: Code(s): C61 - Malignant neoplasm of prostate; C79.51 - Secondary malignant neoplasm of bone Status: Chronic Assessment and Plan: * Hem/Onc follow-up * on chemotherapy Will continue to follow. Subjective Date/time seen: 11/15/22 12:41 Interval history: Follow-up for acute on chronic hyponatremia Sodium down trended to 120 and hence normal saline IVFs restarted overnight; inspite of fluctuating sodium levels, mentation remains quite stable; no other acute issues or problems overnight or earler this morning; no apparent distress. Exam Narrative: General: male in NAD Heart: normal S1 and S2; no rub Lungs: clear to auscultation Abdomen: soft, nontender, nondistended, positive bowel sounds Extremities: no cyanosis or clubbing; no edema Skin: warm and dry Objective Data Vital Signs Vital Signs: Vital Signs Temp Pulse Resp BP Pulse Ox O2 Del Method 11/15/22 12:00 66 11/15/22 12:00 98 Room Air 11/15/22 12:00 97.2 F L 66 66 H 99/54 L 98 11/15/22 08:00 95 Room Air 11/15/22 10:00 70 11/15/22 08:00 73 11/15/22 07:46 97.3 F L 87 18 90/51 L 95 11/15/22 06:00 67 11/15/22 04:00 71 11/15/22 02:00 72 11/15/22 03:47 98.7 F 79 16 106/62 96 11/15/22 00:00 72 11/14/22 23:14 97.8 F 75 16 99/55 L 100 11/14/22 22:00 68 11/14/22 20:00 74 11/14/22 20:00 97.6 F 66 16 100/57 L 99 11/14/22 18:00 68 11/14/22 16:00 66 11/14/22 16:00 100 Room Air 11/14/22 15:51 96.5 F L 65 18 105/62 100 Intake/Output Intake/Output: Intake & Output 11/12/22 11/13/22 11/14/22 11/15/22 23:59 23:59 23:59 23:59 Intake Total 3000 2280 820 Balance 3000 2280 820 Meds/Results Medications: Active Medications Generic Name Dose Route Start Last Admin Trade Name Freq PRN Reason Stop Dose Admin Acetaminophen 650 mg 11/15/22 04:53 11/15/22 05:08 Acetaminophen 325 Mg Tablet PO 650 mg Q4H PRN Adminis
[2022-11-15 13:21] LABS: Sodium 126 mmol/L (137-145)
--- NOTE | 2022-11-15 13:29 | PC.NURSE ---
Notified Dr. Dorsey of sodium results of 126. New order to hold salt tabs, decrease fluids to 50ml/hr and repeat labs in 4 hours. Call with the results
[2022-11-15] MEDS: SODIUM CHLORIDE 0.9% IV 1,000 ML 50 ML IV CONT (13:45)
--- NOTE | 2022-11-15 14:24 | WPDGIPROGNO ---
Progress Note: A&P Assessment and Plan (1) Anemia: Code(s): D64.9 - Anemia, unspecified Status: Acute Assessment and Plan: Patient with normochromic normocytic anemia. Likely related to chemotherapy. No evidence for GI bleeding. Stool Hemoccult pending at this time. Dr. Peter Carolina will be covering GI service, should any problems arise consider Hematology/Oncology service consult if anemia persists. (2) Acute hyponatremia: Code(s): E87.1 - Hypo-osmolality and hyponatremia Status: Acute (3) Prostate cancer metastatic to bone: Code(s): C61 - Malignant neoplasm of prostate; C79.51 - Secondary malignant neoplasm of bone Status: Acute Subjective Date/time seen: 11/15/22 14:24 Interval history: Patient alert comfortable this morning. Denies abdominal pain. No blood noted in his stools. Review of Systems Review of Systems: Review of systems noncontributory. Exam Narrative: Physical exam reveals patient be alert. Vital signs stable. Comfortable at rest. He is anicteric. Lungs are clear. Heart without murmur. Abdomen bowel sounds present soft nontender. Objective Data Vital Signs Vital Signs: Vital Signs - 24 hr 11/14/22 15:51 11/14/22 16:00 11/14/22 16:00 Temperature 96.5 F L Pulse Rate 65 66 Respiratory Rate 18 Blood Pressure 105/62 Pulse Oximetry 100 100 Oxygen Delivery Room Air 11/14/22 18:00 11/14/22 20:00 11/14/22 20:00 Temperature 97.6 F Pulse Rate 68 66 74 Respiratory Rate 16 Blood Pressure 100/57 L Pulse Oximetry 99 Oxygen Delivery 11/14/22 22:00 11/14/22 23:14 11/15/22 00:00 Temperature 97.8 F Pulse Rate 68 75 72 Respiratory Rate 16 Blood Pressure 99/55 L Pulse Oximetry 100 Oxygen Delivery 11/15/22 03:47 11/15/22 02:00 11/15/22 04:00 Temperature 98.7 F Pulse Rate 79 72 71 Respiratory Rate 16 Blood Pressure 106/62 Pulse Oximetry 96 Oxygen Delivery 11/15/22 06:00 11/15/22 07:46 11/15/22 08:00 Temperature 97.3 F L Pulse Rate 67 87 73 Respiratory Rate 18 Blood Pressure 90/51 L Pulse Oximetry 95 Oxygen Delivery 11/15/22 10:00 11/15/22 08:00 11/15/22 12:00 Temperature 97.2 F L Pulse Rate 70 66 Respiratory Rate 66 H Blood Pressure 99/54 L Pulse Oximetry 95 98 Oxygen Delivery Room Air 11/15/22 12:00 11/15/22 12:00 Temperature Pulse Rate 66 Respiratory Rate Blood Pressure Pulse Oximetry 98 Oxygen Delivery Room Air Intake/Output Intake/Output: Intake & Output 11/12/22 11/13/22 11/14/22 11/15/22 23:59 23:59 23:59 23:59 Intake Total 3000 2280 820 Balance 3000 2280 820 Meds/Results Medications: Active Medications Generic Name Dose Route Start Last Admin Trade Name Freq PRN Reason Stop Dose Admin Acetaminophen 650 mg 11/15/22 04:53 11/15/22 05:08 Acetaminophen 325 Mg Tablet PO 650 mg Q4H PRN Administration Headache or Mild Pain 1-3 Bicalutamide 50 mg 11/15/22 09:00 11/15/22 08:47 Bicalutamide (*Chemo) 50 Mg Tablet PO 50 mg DAILY GABRIELA Administration Dexamethasone 4 mg 11/15/22 09:00 11/15/22 08:47 Dexamethasone 4 Mg Tablet PO 4 mg BID GABRIELA Administration Heparin Sodium (Beef Lung) 50 units 11/15/22 11:46 Heparin Flush 50 Units/5 Ml Syringe IV PUSH PRN PRN after blood draws Heparin Sodium (Beef Lung) 50 units 11/15/22 11:46 Heparin Flush 50 Units/5 Ml Syringe IV PUSH PRN PRN after intermittent infusion Heparin Sodium (Beef Lung) 50 units 11/16/22 09:00 Heparin Flush 50 Units/5 Ml Syringe IV PUSH QAM GABRIELA Heparin Sodium (Porcine) 500 units 11/15/22 11:46 Heparin Sodium Lock Flush 500 Units/5 Ml Syringe IV PUSH PRN PRN see comments below Sodium Chloride 1,000 mls @ 50 mls/hr 11/15/22 00:20 11/15/22 08:54 Normal Saline Iv IV CONT 70 mls/hr .Q20H GABRIELA Infusion Lidocaine/Prilocaine 1 each 11/15
[2022-11-15 14:56] LABS: Osmolality, Urine 129 mOsm/kg (50-1200)
[2022-11-15] MEDS: CENTRAL LINE FLUSH 10 ML IV PUSH ×2 (15:55→21:43)
[2022-11-15 17:16] LABS: Sodium 129 mmol/L (137-145)
--- NOTE | 2022-11-15 17:22 | PC.NURSE ---
Spoke with Dr. Dorsey regarding sodium level of 126. New order to d/c fluid restriction, d/c IV fluids and recheck sodium level at 1900. Call with results.
--- NOTE | 2022-11-15 17:40 | PC.NURSE ---
Received from [facility] 210/ via bed.
--- NOTE | 2022-11-15 17:40 | PC.NURSE ---
This patient, Matthew Byers, was transferred to [ [id number]] on 11/15/22 at 1735. Personal belongings sent with patient. Report given to [MARIAELENA Swenson @ [phone] ]. Appropriate documentation sent with patient.
[2022-11-15 17:45] LABS: IFOB Positive Control Positive; Immunochemical Fecal Occult Bl Negative (N)
[2022-11-15 19:27] LABS: Sodium 125 mmol/L (137-145)
[2022-11-15] MEDS: QUEtiapine FUMARATE 25 MG TABLET PO (20:45)
[2022-11-16] MEDS: SODIUM CHLORIDE 0.9% IV 1,000 ML 75 ML IV CONT (00:42)
[2022-11-16 03:43] VITALS: BP 102/58; PULSE 64; RESP 20; TEMP 36.6; O2SAT 98
[2022-11-16] MEDS: CENTRAL LINE FLUSH 10 ML IV PUSH ×2 (05:14→13:36)
[2022-11-16 05:24] LABS: Hematocrit 27.2 % (42.0-52.0); Hemoglobin 9.2 g/dL (14.0-18.0); Mean Corpuscular HGB Conc 33.8 g/dl (32-36); Mean Corpuscular Hemoglobin 33.3 pg (26-34); Mean Corpuscular Volume 98.6 fl (80-100); Mean Platelet Volume 8.2 fl (7.4-10.4); Platelet Count Result 292 k/mm3 (150-375); Red Blood Count 2.76 M/mm3 (4.6-6.20); Red Cell Distribution Width 15.3 % (11.5-14.5); White Blood Count 5.4 K/mm3 (4.5-10.0)
--- NOTE | 2022-11-16 05:43 | PC.NURSE ---
I reviewed the License Pending RN's documentation and agree with the findings.
--- NOTE | 2022-11-16 08:00 | PM.IMPN ---
Progress Note: A&P Assessment and Plan (1) Hyponatremia: Code(s): E87.1 - Hypo-osmolality and hyponatremia Status: Acute (2) Anemia: Code(s): D64.9 - Anemia, unspecified Status: Acute (3) Abnormal stress test: Code(s): R94.39 - Abnormal result of other cardiovascular function study Status: Acute (4) Prostate cancer metastatic to bone: Code(s): C61 - Malignant neoplasm of prostate; C79.51 - Secondary malignant neoplasm of bone Status: Chronic (5) Daily consumption of alcohol: Code(s): Z78.9 - Other specified health status Status: Acute (6) Tobacco abuse: Code(s): Z72.0 - Tobacco use Status: Acute Plan The patient presented to the emergency department from the [facility] for evaluation after he was found to have anemia and hyponatremia as detailed in HPI. Additionally he had a stress test done yesterday which was reportedly abnormal. Cardiology consulted given reports of abnormal stress test. Smoking cessation is encouraged Contract Administration Specialist considers he is not a candidate for cardiac catheterization at this time given his severe hyponatremia and significant anemia (Hgb was 13.7 in August and is now down to 7.6). Patient would need to demonstrate tolerance of antiplatelet agents before we would even consider cardiac catheterization. ?Anemia Patient received chemotherapy treatments about 3 weeks ago Acute be 11.2 on October 23 Today 7.7 Follow stool guaiac, ferritin, iron panel Start Protonix 40 mg IV daily Consult GI. appreciate GI consult, considering due to chemotherapy Acute on chronic hyponatremia ?It looks like his sodium always runs a bit low however it was 115 POA Consulted golf instructor for evaluation and treatment ?Etiology is not entirely clear.? Possible due to alcohol abuse he does not look volume depleted or volume overloaded on exam. It sounds like he consumes quite a bit of fluid which may be the cause. He received 2 L of normal saline in the emergency department . Urine sodium, TSH, and urine serum osmolalities are pending. Sodium down trended to 120 am and hence normal saline IVFs restarted overnight; Na is trending up 130 today History of alcohol abuse Currently no signs or symptoms of alcohol withdrawal. His home medications will be reviewed and resumed as appropriate. Subjective Date/time seen: 11/16/22 08:00 Interval history: I saw exam patient today. Patient denies chest pain, abdomen pain, shortness of breath, black stool, nausea vomiting. Sodium level is [id number]. Hemoglobin stable 9.2 Exam Narrative: General: A chronically ill-appearing male sitting up in bed in no acute distress. Weight: 63.5 kg. BMI: 21.3. HEENT: PERRL, EOMI. Sclera anicteric. Moist mucous membranes. Neck: Supple. Respiratory: Lungs are clear to auscultation bilaterally. Chest: No tenderness to palpation over the chest wall. Cardiovascular: Regular rate and rhythm with S1-S2. Gastrointestinal: Abdomen is soft, nontender, and nondistended with positive bowel sounds. Skin: Warm and dry. Generalized pallor. Extremities: No cyanosis, clubbing, or edema. Radial and pedal pulses intact. Neurological: Alert. Cranial nerves 2-12 are grossly intact. No gross focal deficits to casual conversation. Psychiatric: Pleasant and cooperative with normal mood and affect. Judgment and insight intact. Objective Data Vital Signs Vital Signs: Vital Signs - 24 hr 11/15/22 10:00 11/15/22 12:00 11/15/22 12:00 Temperature 97.2 F L Pulse Rate 70 66 Respiratory Rate 66 H Blood Pressure 99/54 L Pulse Oximetry 98 98 Oxygen Delivery Room Air 11/15/22 12:00 11/15/22 14:00 11/15/22 16:00 Temperature 97.6 F Pulse Rate 66 65 64 Respiratory Rate 16 Blood Pressure 97/55 L Pulse Oximetry 99 Oxygen Delivery 11/15/22 19:39 11/15/22 20:00 11/16/22 03:43 Temperature 98 F 97.9 F Pulse Rate 68 64 Respiratory Rate 20 20
[2022-11-16 08:19] LABS: Albumin Level 2.9 g/dL (3.5-5.1); Anion Gap 5 mmol/L (8-16); Blood Urea Nitrogen 6 mg/dL (9-20); Calcium 6.2 mg/dL (8.4-10.2); Carbon Dioxide 21 mmol/L (22-30); Chloride 104 mmol/L (98-107); Estimated CRCL calculation 189 ml/min; Estimated Glomerular Filt Rate > 60; Glucose 113 mg/dL (65-110); Phosphorus 2.6 mg/dL (2.5-4.5); Potassium 4.1 mmol/L (3.4-5.0); Sodium 130 mmol/L (137-145)
--- NOTE | 2022-11-16 09:26 | P.PNNP_ITS ---
Progress Note: A&P Assessment and Plan (1) Hyponatremia: Code(s): E87.1 - Hypo-osmolality and hyponatremia Status: Acute Assessment and Plan: * back to baseline * acute on chronic * baseline sodium runs around 129 - 132mmol/L since early 2018 * chronic sodium due to: * underlying malignancy * smoking * chronic pain * pain medications * etiology of acute drop not clear: * side effect of chemotherapy? * prerenal factors? * excessive fluid intake? * evaluation to date: * TSH okay * urine electrolytes prerenal * not checking cortisol since already on steroids * serum/urine osmo pending * increase in sodium level with normal saline IV boluses argues in favor of volume depletion * s/p DDAVP and D5W IVFs (on 11/14/22) due to overcorrection * s/p normal saline IVFs with sodium back to baseline * follow trend of repeat sodium levels (2) Anemia: Code(s): D64.9 - Anemia, unspecified Status: Acute Assessment and Plan: * presumably related to chemotherapy * Gastroenterology recommendations * follow H/H (3) Prostate cancer metastatic to bone: Code(s): C61 - Malignant neoplasm of prostate; C79.51 - Secondary malignant neoplasm of bone Status: Chronic Assessment and Plan: * Hem/Onc follow-up * on chemotherapy Not opposed to discharge from renal perspective if otherwise medically stable. Will continue to follow. Subjective Date/time seen: 11/16/22 09:26 Interval history: Follow-up for acute on chronic hyponatremia Sodium doing better in the last 24 hours if not back to baseline; mentation seems stable (although was never really an issues even when sodium was 115mmol/L); no apparent distress voiced at the time of my visit. Exam 2 Narrative: General: male in NAD Heart: normal S1 and S2; no rub Lungs: clear to auscultation Abdomen: soft, nontender, nondistended, positive bowel sounds Extremities: no cyanosis or clubbing; no edema Skin: warm and intact Objective Data Vital Signs Vital Signs: Vital Signs Temp Pulse Resp BP Pulse Ox O2 Del Method 11/16/22 09:26 Room Air 11/16/22 03:43 97.9 F 64 20 102/58 L 98 11/15/22 20:00 Room Air 11/15/22 19:39 98 F 68 20 97/57 L 99 11/15/22 16:00 97.6 F 64 16 97/55 L 99 11/15/22 14:00 65 Intake/Output Intake/Output: Intake & Output 11/13/22 11/14/22 11/15/22 11/16/22 23:59 23:59 23:59 23:59 Intake Total 3000 2280 3013 630 Balance 3000 2280 3013 630 Meds/Results Medications: Active Medications Generic Name Dose Route Start Last Admin Trade Name Alejandra PRN Reason Stop Dose Admin Acetaminophen 650 mg 11/15/22 04:53 11/15/22 05:08 Acetaminophen 325 Mg Tablet PO 650 mg Q4H PRN Administration Headache or Mild Pain 1-3 Bicalutamide 50 mg 11/15/22 09:00 11/16/22 09:33 Bicalutamide (*Chemo) 50 Mg Tablet PO 50 mg DAILY GABRIELA Administration Dexamethasone 4 mg 11/15/22 09:00 11/16/22 09:33 Dexamethasone 4 Mg Tablet PO 4 mg BID GABRIELA Administration Heparin Sodium (Beef Lung) 50 units 11/15/22 11:46 10/20
--- NOTE | 2022-11-16 09:26 | PM.PNNEP ---
Progress Note: A&P Assessment and Plan (1) Hyponatremia: Code(s): E87.1 - Hypo-osmolality and hyponatremia Status: Acute Assessment and Plan: back to baseline acute on chronic baseline sodium runs around 129 - 132mmol/L since early 2018 chronic sodium due to: underlying malignancy smoking chronic pain pain medications etiology of acute drop not clear: side effect of chemotherapy? prerenal factors? excessive fluid intake? evaluation to date: TSH okay urine electrolytes prerenal not checking cortisol since already on steroids serum/urine osmo pending increase in sodium level with normal saline IV boluses argues in favor of volume depletion s/p DDAVP and D5W IVFs (on 11/14/22) due to overcorrection s/p normal saline IVFs with sodium back to baseline follow trend of repeat sodium levels (2) Anemia: Code(s): D64.9 - Anemia, unspecified Status: Acute Assessment and Plan: presumably related to chemotherapy Gastroenterology recommendations follow H/H (3) Prostate cancer metastatic to bone: Code(s): C61 - Malignant neoplasm of prostate; C79.51 - Secondary malignant neoplasm of bone Status: Chronic Assessment and Plan: Hem/Onc follow-up on chemotherapy Not opposed to discharge from renal perspective if otherwise medically stable. Will continue to follow. Subjective Date/time seen: 11/16/22 09:26 Interval history: Follow-up for acute on chronic hyponatremia Sodium doing better in the last 24 hours if not back to baseline; mentation seems stable (although was never really an issues even when sodium was 115mmol/L); no apparent distress voiced at the time of my visit. Exam Narrative: General: male in NAD Heart: normal S1 and S2; no rub Lungs: clear to auscultation Abdomen: soft, nontender, nondistended, positive bowel sounds Extremities: no cyanosis or clubbing; no edema Skin: warm and intact Objective Data Vital Signs Vital Signs: Vital Signs Temp Pulse Resp BP Pulse Ox O2 Del Method 11/16/22 09:26 Room Air 11/16/22 03:43 97.9 F 64 20 102/58 L 98 11/15/22 20:00 Room Air 11/15/22 19:39 98 F 68 20 97/57 L 99 11/15/22 16:00 97.6 F 64 16 97/55 L 99 11/15/22 14:00 65 Intake/Output Intake/Output: Intake & Output 11/13/22 11/14/22 11/15/22 11/16/22 23:59 23:59 23:59 23:59 Intake Total 3000 2280 3013 630 Balance 3000 2280 3013 630 Meds/Results Medications: Active Medications Generic Name Dose Route Start Last Admin Trade Name Freq PRN Reason Stop Dose Admin Acetaminophen 650 mg 11/15/22 04:53 11/15/22 05:08 Acetaminophen 325 Mg Tablet PO 650 mg Q4H PRN Administration Headache or Mild Pain 1-3 Bicalutamide 50 mg 11/15/22 09:00 11/16/22 09:33 Bicalutamide (*Chemo) 50 Mg Tablet PO 50 mg DAILY GABRIELA Administration Dexamethasone 4 mg 11/15/22 09:00 11/16/22 09:33 Dexamethasone 4 Mg Tablet PO 4 mg BID GABRIELA Administration Heparin Sodium (Beef Lung) 50 units 11/15/22 11:46 11/16/22 05:15 Heparin Flush 50 Units/5 Ml Syringe IV PUSH 50 units PRN PRN Administration after blood draws Heparin Sodium (Beef Lung) 50 units 11/15/22 11:46 Heparin Flush 50 Units/5 Ml Syringe IV PUSH PRN PRN after intermittent infusion Heparin Sodium (Beef Lung) 50 units 11/16/22 09:00 11/16/22 08:35 Heparin Flush 50 Units/5 Ml Syringe IV PUSH Not Given QAM GABRIELA Heparin Sodium (Porcine) 500 units 11/15/22 11:46 Heparin Sodium Lock Flush 500 Units/5 Ml Syringe IV PUSH PRN PRN see comments below Sodium Chloride 1,000 mls @ 75 mls/hr 11/16/22 00:05 11/16/22 00:42 Normal Saline Iv IV CONT 75 mls/hr .[id number] AGBRIELA Administration Lidocaine/Prilocaine 1 each 11/15/22 08:57 Lidocaine/Prilocaine Cream 2.5-2.5% Tube TOPICAL BID PRN TO ACCESS PORT A CATH Mo
[2022-11-16] MEDS: PANTOPRAZOLE SODIUM IV 40 MG VIAL IV PUSH (09:33)
[2022-11-16] MEDS: BICALUTAMIDE (*CHEMO) 50 MG TABLET PO (09:33)
[2022-11-16] MEDS: DEXAMETHASONE 4 MG TABLET PO (09:33)
--- NOTE | 2022-11-16 11:48 | PM.DS ---
DS: Admitting Diagnosis Discharge Date today Admitting Diagnosis (1) Hyponatremia: ?Code(s): E87.1 - Hypo-osmolality and hyponatremia ?Status:?Acute (2) Anemia: ?Code(s): D64.9 - Anemia, unspecified ?Status:?Acute (3) Abnormal stress test: ?Code(s): R94.39 - Abnormal result of other cardiovascular function study ?Status:?Acute (4) Prostate cancer metastatic to bone: ?Code(s): C61 - Malignant neoplasm of prostate; C79.51 - Secondary malignant neoplasm of bone ?Status:?Chronic (5) Daily consumption of alcohol: ?Code(s): Z78.9 - Other specified health status ?Status:?Acute (6) Tobacco abuse: ?Code(s): Z72.0 - Tobacco use ?Status:?Acute DS: Discharge Diagnosis Discharge Diagnosis (1) Hyponatremia: Code(s): E87.1 - Hypo-osmolality and hyponatremia Status: Acute (2) Anemia: Code(s): D64.9 - Anemia, unspecified Status: Acute (3) Abnormal stress test: Code(s): R94.39 - Abnormal result of other cardiovascular function study Status: Acute (4) Prostate cancer metastatic to bone: Code(s): C61 - Malignant neoplasm of prostate; C79.51 - Secondary malignant neoplasm of bone Status: Chronic (5) Daily consumption of alcohol: Code(s): Z78.9 - Other specified health status Status: Acute (6) Tobacco abuse: Code(s): Z72.0 - Tobacco use Status: Acute DS: Summary Hospital Course Hospital Course: The patient presented to the emergency department from the [facility] for evaluation after he was found to have anemia and hyponatremia as detailed in HPI. Additionally he had a stress test done yesterday which was reportedly abnormal. Cardiology consulted given reports of abnormal stress test. Smoking cessation is encouraged Armor Officer considers he is not a candidate for cardiac catheterization at this time given his severe hyponatremia and significant anemia (Hgb was 13.7 in August and is now down to 7.6). Patient would need to demonstrate tolerance of antiplatelet agents before we would even consider cardiac catheterization. ?Anemia Patient received chemotherapy treatments about 3 weeks ago Acute be 11.2 on October 23 Today 7.7 Follow stool guaiac, ferritin, iron panel Start Protonix 40 mg IV daily Consult GI. appreciate GI consult, considering due to chemotherapy Acute on chronic hyponatremia ?It looks like his sodium always runs a bit low however it was 115 POA Consulted transport pilot for evaluation and treatment ?Etiology is not entirely clear.? Possible due to alcohol abuse he does not look volume depleted or volume overloaded on exam. It sounds like he consumes quite a bit of fluid which may be the cause. He received 2 L of normal saline in the emergency department . Urine sodium, TSH, and urine serum osmolalities are pending. Sodium down trended to 120 am and hence normal saline IVFs restarted overnight; Na is trending up 130 today History of alcohol abuse Currently no signs or symptoms of alcohol withdrawal. His home medications will be reviewed and resumed as appropriate. Time Spent with Patient Time attestation: Total time spent providing and/or coordinating discharge services: Exam Narrative: General: A chronically ill-appearing male sitting up in bed in no acute distress. Weight: 63.5 kg. BMI: 21.3. HEENT: PERRL, EOMI. Sclera anicteric. Moist mucous membranes. Neck: Supple. Respiratory: Lungs are clear to auscultation bilaterally. Chest: No tenderness to palpation over the chest wall. Cardiovascular: Regular rate and rhythm with S1-S2. Gastrointestinal: Abdomen is soft, nontender, and nondistended with positive bowel sounds. Skin: Warm and dry. Generalized pallor. Extremities: No cyanosis, clubbing, or edema. Radial and pedal pulses intact. Neurological: Alert. Cranial nerves 2-12 are grossly intact. No gross focal deficits to casual conversation. Psychiatric:
[2022-11-16] MEDS: HEPARIN SODIUM LOCK FLUSH 500 UNITS/5 ML SYRINGE IV PUSH (13:36)
== END 2022-11-16 14:35 | disposition home or self-care (01) | DRG 641 ==
LOC: ANHED 13:14 → ANHIMU 17:54 → ANH2MED 11-15 17:34
PROVIDERS: Internal Medicine; Internal Medicine Gastroenterology; Internal Medicine Nephrology; Physician Assistant; Admitting Provider Student in an Organized Health Care Education/Training Program; Emergency Provider General Practice; PCP Internal Medicine Hematology & Oncology; Visit Provider Hospitalist
DX: E87.1 Hypo-osmolality and hyponatremia (principal); C79.51 Secondary malignant neoplasm of bone; R94.39 Abnormal result of other cardiovascular function study; C61 Malignant neoplasm of prostate; Z78.9 Other specified health status; F10.10 Alcohol abuse, uncomplicated; D64.81 Anemia due to antineoplastic chemotherapy; M19.90 Unspecified osteoarthritis, unspecified site; Z87.891 Personal history of nicotine dependence
CPT/HCPCS: 36415; 71045; 80048; 80053; 80069; 81003; 82274; 82570; 82728; 82803; 82948; 83540; 83550; 83735; 83930; 83935; 84100; 84295; 84300; 84439; 84443; 84480; 84540; 85014; 85018; 85025; 85027; 86850; 86900; 86901; 93005; 96361; 96374; 99285; A9270; C9113; J0612; J1642; J2597; J7030; J7060; J8540

== ENCOUNTER 2023-03-26 08:47 | Outpatient (CLI) | payer BC, SELFPAY ==
--- NOTE | ~2023-03-26 | NM_ITS ---
EXAMINATION: NM bone scan whole body DATE: 03/26/2023 13:31 INDICATION: Prostate cancer, metastatic to bone TECHNIQUE: 24.5 mCi Tc-99m HDP was administered intravenously. Delayed whole-body scintigrams were o btained. COMPARISON: Bone scan dated 12/27/2017 and PET/CT dated 10/10/2022 FINDINGS: Superscan with interval development of extensive heterogeneous increased uptake throughout the axial and appendicular skeleton consistent with widespread metastatic disease. This corresponds to the wide spread sclerosis of bones with corresponding increased PSMA uptake on the prior PET study. IMPRESSION: 1. Widespread osseous metastatic disease throughout the axial and appendicular skeleton. Reviewed, dictated and finalized at location A. SUPERVISOR
== END 2023-03-26 08:48 | disposition home or self-care (01) ==
LOC: ANHIMG 08:55
PROVIDERS: PCP Internal Medicine Hematology & Oncology; Visit Provider Internal Medicine Hematology & Oncology
DX: C61 Malignant neoplasm of prostate (principal); C79.51 Secondary malignant neoplasm of bone
CPT/HCPCS: 78306; A9503

== ENCOUNTER 2023-07-06 07:28 | Emergency (ER) | payer BC, SELFPAY ==
--- NOTE | ~2023-07-06 | XR_ITS ---
EXAMINATION: XR chest 2V DATE: 07/06/2023 07:51 INDICATION: Cough. Prostate cancer. TECHNIQUE: Frontal and lateral views of the chest were obtained. COMPARISON: Chest view 11/13/2022 FINDINGS: There is mild elevation of right hemidiaphragm. There is mild atelectasis at right lung bas e. No pleural effusion or pneumothorax. The heart size is normal. There is a right internal jugular p ort with tip in superior vena cava. There are widespread sclerotic lesions of bone, consistent with m etastatic disease. There are old healed fractures of left fifth and sixth ribs. IMPRESSION: 1. Mild atelectasis at right lung base. 2. Widespread sclerotic lesions of bone, consistent with metastatic disease. Reviewed, dictated and finalized at location A.
[2023-07-06 07:31] VITALS: BP 148/93; PULSE 75; RESP 16; TEMP 36.2; O2SAT 99
--- NOTE | 2023-07-06 07:42 | ED.SKABFB ---
HPI - Skin/Abscess/Foreign Bdy General Chief complaint: Skin/Abscess/Foreign Body Stated complaint: rash Time Seen by Provider: 07/06/23 07:29 History of Present Illness HPI narrative: This is a 63-year-old male, with history of metastatic prostate cancer, currently undergoing chemotherapy with last treatment done on June 11, 2023, who presents to the emergency department complaining of a painful rash over the right shoulder. The patient states the rash began 3 days ago with tingling in the skin over the posterior right neck and the front of the right shoulder and chest, that progressed to involve small blisters. In the past 24 hours, the blisters epic, significantly painful, currently rated 7/10. He states the rash was present before a scheduled Epoeitin infusion. He was evaluated by his oncologist, Dr. Rosario and started on an antibiotic. He states his pain has been improved with use of ibuprofen home. He denies fevers, ear pain, loss of hearing, change/loss of vision, fevers with headaches, neck stiffness or weakness/numbness. He states he has had chickenpox in the past. He complains chronic nonproductive cough, fatigue and chills associated with his cancer. He has no other complaints at this time. Related Data Home Medications Medication Instructions Recorded Confirmed tramadol 50 mg tablet 50 mg PO DAILY PRN Moderate Pain 10/04/22 06/11/23 (Scale Score 5-6) abiraterone 250 mg tablet 250 mg PO QID 11/13/22 06/11/23 bicalutamide 50 mg tablet 50 mg PO DAILY 11/13/22 06/11/23 dexamethasone 4 mg tablet 4 mg PO BID 11/13/22 06/11/23 famotidine 20 mg tablet 20 mg PO DAILY 11/13/22 06/11/23 lidocaine-prilocaine 2.5 %-2.5 % 1 applic transdermal BID 11/13/22 06/11/23 topical cream ondansetron HCl 8 mg tablet 8 mg PO BID PRN Nausea And Vomiting 11/13/22 06/11/23 prednisone 5 mg tablet 5 mg PO BIDWM 11/13/22 06/11/23 quetiapine 25 mg tablet 25 mg PO HS 11/13/22 06/11/23 sulfamethoxazole 800 1 tablet PO BID 11/13/22 06/11/23 mg-trimethoprim 160 mg tablet calcium carbonate 600 mg-vitamin 1 tablet PO QID 11/20/22 06/11/23 D3 5 mcg (200 unit) tablet Allergies Allergy/AdvReac Type Severity Reaction Status Date / Time No Known Allergies Allergy Verified 06/11/23 10:14 Review of Systems Review of Systems: All systems reviewed & are unremarkable except as noted in HPI and below PMFSH Past Medical History Medical History Anxiety Arthritis Ascending aorta dilatation Daily consumption of alcohol Hypersomnia Hypertension Insomnia Prostate cancer metastatic to bone Tobacco abuse Surgical History Surgical History History of left inguinal hernia repair (07/2011) History of robot-assisted laparoscopic radical prostatectomy (02/2018) Family History Family History Father Malignant neoplasm of prostate Grandparent Heart disease Other Diabetes mellitus Family history of cardiovascular disease Family history of coronary artery disease Hypertension Social History Social History Social History: Surrogate medical decision maker: Emy Mckeon, spouse. Code status: Full code. Smoking packs per day: 1 Smoking cigarettes per day: 20.0 Years smoked: 30 Smoking pack-years: 30.00 Smoking status: Former smoker Tobacco type: cigarettes Smoking end date: 10/01/22 Alcohol intake: current Drinks per week: 18 Substance use: never Substance use type: does not use Lack of Transportation: No Lack of Food: Never True Current Housing: I Have Housing Concerned About Future Housing: No Difficulty Paying Gas/Electric Bills: No Difficulty Paying for Meds: No Currently Unemployed: No Education: High School Diploma/GED Difficulty w/ Childcare or Family Care: No Living ar
== END 2023-07-06 08:14 | disposition home or self-care (01) ==
PROVIDERS: Emergency Provider Preventive Medicine Aerospace Medicine; PCP Internal Medicine Hematology & Oncology
DX: B02.9 Zoster without complications (principal); M25.511 Pain in right shoulder; Z87.442 Personal history of urinary calculi; F41.9 Anxiety disorder, unspecified; M19.90 Unspecified osteoarthritis, unspecified site; I10 Essential (primary) hypertension
CPT/HCPCS: 71046; 99283